=== PATIENT | male | born 1940 | race Caucasian/White ===

== ENCOUNTER → 2017-08-23 09:14 | Outpatient (CLI) | payer MEDICARE, OTHER, SELFPAY ==
[2017-08-23 13:12] LABS: Absolute Lymphocyte Count 1.52 X10^3/ul (0.83-4.51); Absolute Neutrophil Count 4.6 X10^3/uL (2.0-7.7); Basophil# 0.03 X10^3/uL; Basophil% 0.4 % (0-1); Eosinophil# 0.16 X10^3/uL; Eosinophils% 2.3 % (0-5); Hematocrit 38.9 % (40-54); Lymphocyte # 1.52 X10^3/ul (4.0); Lymphocyte % 21.8 % (19-41); Mean Corp Hgb Conc 33.4 g/gl (32-36); Mean Corpuscular Hgb 30.4 pg (27.0-32.0); Mean Corpuscular Volume 91.1 fL (80-94); Mean Platelet Vol. 9.5 fl (6.2-12.0); Monocyte# 0.67 X10^3/uL; Monocyte% 9.6 % (0-10); Neutrophil # 4.56 X10^3/uL (2.7-7.7); Neutrophil % 65.6 % (47-70); Platelet Count 215 K/mm3 (150-450); RBC Distribution Width CV 13.6 % (11.6-14.6); RBC Distribution Width SD 44.7 fl (35.1-43.9); Red Blood Count 4.27 M/mm3 (4.6-6.2)
[2017-08-23 13:29] LABS: Albumin, Serum 3.6 g/dL (3.2-5.0); BUN 18 mg/dL (7-18); BUN/Creat Ratio 15.7 RATIO (10-20); Creatinine, Serum 1.15 mg/dL (0.70-1.30); EST Glomerular Filtration Rate 66 mL/min (>60); Est Glom Filt Rate - Afr Amer 79 mL/min (>60); Glucose 201 mg/dL (74-106); Protein, Total 6.6 g/dL (6.4-8.2)
[2017-08-23 13:30] LABS: ALB/GLOB Ratio 1.2 RATIO (0.9-2.4); AST(SGOT) 20 U/L (15-37); Alanine Aminotransfer ALT/SGPT 28 U/L (16-61); Alkaline Phosphatase 123 U/L (45-117); Anion Gap 7 (5-15); Calcium,Total 8.6 mg/dL (8.5-10.1); Chloride 109 mmol/L (98-107); Potassium 4.1 mmol/L (3.5-5.1); Sodium Level 144 mmol/L (136-145); Thyroid Stim Hormone (TSH) 2.89 uIU/mL (0.358-3.74)
== END ==
PROVIDERS: Family Provider Family Medicine Geriatric Medicine; PCP Family Medicine Geriatric Medicine; Visit Provider Family Medicine Geriatric Medicine
DX: E11.9 Type 2 diabetes mellitus without complications (principal); E55.9 Vitamin D deficiency, unspecified; F52.8 Other sexual dysfunction not due to a substance or known physiological condition; I10 Essential (primary) hypertension
CPT/HCPCS: 36415; 80053; 82306; 84403; 84443; 85025

== ENCOUNTER → 2017-11-14 10:21 | Outpatient (CLI) | payer MEDICARE, OTHER, SELFPAY ==
[2017-11-14 13:18] LABS: Absolute Lymphocyte Count 1.01 X10^3/ul (0.83-4.51); Absolute Neutrophil Count 4.4 X10^3/uL (2.0-7.7); Basophil# 0.03 X10^3/uL; Basophil% 0.5 % (0-1); Eosinophil# 0.13 X10^3/uL; Eosinophils% 2.1 % (0-5); Hematocrit 38.2 % (40-54); Hemoglobin 12.3 g/dl (13.0-16.5); Lymphocyte # 1.01 X10^3/ul (4.0); Lymphocyte % 16.5 % (19-41); Mean Corp Hgb Conc 32.2 g/gl (32-36); Mean Corpuscular Hgb 29.4 pg (27.0-32.0); Mean Corpuscular Volume 91.4 fL (80-94); Mean Platelet Vol. 9.7 fl (6.2-12.0); Monocyte# 0.54 X10^3/uL; Monocyte% 8.8 % (0-10); Neutrophil % 72.1 % (47-70); Platelet Count 178 K/mm3 (150-450); RBC Distribution Width CV 13.9 % (11.6-14.6); RBC Distribution Width SD 45.9 fl (35.1-43.9); Red Blood Count 4.18 M/mm3 (4.6-6.2); White Blood Count 6.1 K/mm3 (4.4-11.0)
[2017-11-14 13:30] LABS: POSITIVE COUNT NO; POSITIVE DIFFERENTIAL NO; POSITIVE MORPHOLOGY NO
[2017-11-14 13:36] LABS: ALB/GLOB Ratio 1.2 RATIO (0.9-2.4); AST(SGOT) 27 U/L (15-37); Alanine Aminotransfer ALT/SGPT 44 U/L (16-61); Albumin, Serum 3.6 g/dL (3.2-5.0); Alkaline Phosphatase 118 U/L (45-117); Anion Gap 9 (5-15); BUN 20 mg/dL (7-18); BUN/Creat Ratio 16.4 RATIO (10-20); Calcium,Total 8.7 mg/dL (8.5-10.1); Chloride 109 mmol/L (98-107); Creatinine, Serum 1.22 mg/dL (0.70-1.30); EST Glomerular Filtration Rate 61 mL/min (>60); Est Glom Filt Rate - Afr Amer 74 mL/min (>60); Glucose 241 mg/dL (74-106); Potassium 4.1 mmol/L (3.5-5.1); Protein, Total 6.6 g/dL (6.4-8.2); Sodium Level 143 mmol/L (136-145); Thyroid Stim Hormone (TSH) 2.09 uIU/mL (0.358-3.74)
== END ==
PROVIDERS: Family Provider Family Medicine Geriatric Medicine; PCP Family Medicine Geriatric Medicine; Visit Provider Family Medicine Geriatric Medicine
DX: E11.9 Type 2 diabetes mellitus without complications (principal); E55.9 Vitamin D deficiency, unspecified; F52.8 Other sexual dysfunction not due to a substance or known physiological condition; I10 Essential (primary) hypertension
CPT/HCPCS: 36415; 80053; 82306; 84403; 84443; 85025

== ENCOUNTER → 2017-11-19 08:51 | Outpatient (CLI) | payer MEDICARE, OTHER, SELFPAY ==
--- NOTE | 2017-11-19 08:54 | ECHOCS_ITS ---
Reason For Study: SOB Procedure This was a 2D Doppler, Color Flow transthoracic echocardiogram. Contrast injection was performed. The study was technically difficult. Exam performed in department. Left Ventricle Normal LV size. Left ventricular systolic function is normal. The estimated ejection fraction is 60 %. No regional wall motion abnormalities noted. Right Ventricle Normal RV size. Normal systolic function. Atria The left atrium is mildly enlarged. Normal right atrium. No doppler evidence for ASD. Mitral Valve There is no mitral annular calcification. Normal mitral valve. Trivial mitral valve insufficiency. Tricuspid Valve Normal tricuspid valve. Mild tricuspid valve insufficiency. Right ventricular systolic pressure estimated to be 36 mmHg. Aortic Valve Trisinus/trileaflet aortic valve. Mild focal aortic valve thickening. Pulmonic Valve The pulmonic valve is not well visualized. Great Vessels Normal sized aortic root. Pericardium/Pleural No pericardial effusion. Medication Diluted definity 5ml given slow IV push to enhance endocardial definition. MMode/2D Measurements & Calculations LVIDd: 4.8 cm IVSd: 1.0 cm Ao root diam: 3.8 cm LVIDs: 3.1 cm LVPWd: 1.2 cm LA dimension: 4.7 cm FS: 34.3 % LAV(MOD-bp): 80.5 ml LA A4 area: 24.4 cm2 RA A4 area: 19.7 cm2 LAV(MOD-bp) Indexed: 33.4 ml/m2 LAV(MOD-sp2): 82.9 ml LAV(MOD-sp4): 79.4 ml Time Measurements MV dec time: 0.27 sec Doppler Measurements & Calculations MV E max mitchell: 98.9 cm/sec MV V2 max: 104.0 cm/sec MV P1/2t max mitchell: 103.0 cm/sec MV A max mitchell: 80.5 cm/sec MV max P.3 mmHg MV P1/2t: 113.9 msec MV E/A: 1.2 MV V2 mean: 53.4 cm/sec MV dec slope: 265.0 cm/sec2 MV mean P.4 mmHg MVA(P1/2t): 1.9 cm2 MV V2 VTI: 37.2 cm Ao V2 max: 144.9 cm/sec LV V1 max: 130.4 cm/sec PA V2 max: 90.5 cm/sec Ao max P.4 mmHg LV V1 max P.8 mmHg Ao V2 mean: 84.4 cm/sec LV V1 mean P.8 mmHg Ao mean P.4 mmHg LV V1 mean: 75.5 cm/sec Ao V2 VTI: 32.5 cm LV V1 VTI: 31.2 cm TR max mitchell: 287.3 cm/sec TR max P.0 mmHg Interpretation Summary The study was technically difficult. Contrast injection was performed. Left ventricular systolic function is normal. The estimated ejection fraction is 60 %. The left atrium is mildly enlarged. Trivial mitral valve insufficiency. Mild tricuspid valve insufficiency. Mild focal aortic valve thickening. Right ventricular systolic pressure estimated to be 36 mmHg. Transmitral diastolic flow velocities suggest diastolic dysfunction (pseudonormal pattern). Ordering Physician: Duarte Sanchez Referring Physician: Daniel, Duarte Chi Performed By: Derick Perdue RCS
== END ==
PROVIDERS: Family Provider Family Medicine Geriatric Medicine; PCP Family Medicine Geriatric Medicine; Visit Provider Family Medicine Geriatric Medicine
DX: R06.02 Shortness of breath (principal)
CPT/HCPCS: 93306; Q9957; A4216; C8929

== ENCOUNTER → 2018-02-18 08:51 | Outpatient (CLI) | payer MEDICARE, OTHER, SELFPAY ==
[2018-02-18 12:25] LABS: Absolute Lymphocyte Count 1.38 X10^3/ul (0.83-4.51); Absolute Neutrophil Count 5.2 X10^3/uL (2.0-7.7); Basophil# 0.02 X10^3/uL; Basophil% 0.3 % (0-1); Eosinophil# 0.19 X10^3/uL; Eosinophils% 2.5 % (0-5); Hematocrit 39.5 % (40-54); Hemoglobin 13.3 g/dl (13.0-16.5); Lymphocyte # 1.38 X10^3/ul (4.0); Lymphocyte % 18.4 % (19-41); Mean Corp Hgb Conc 33.7 g/gl (32-36); Mean Corpuscular Hgb 30.2 pg (27.0-32.0); Mean Corpuscular Volume 89.8 fL (80-94); Mean Platelet Vol. 9.9 fl (6.2-12.0); Monocyte# 0.75 X10^3/uL; Neutrophil # 5.17 X10^3/uL (2.7-7.7); Neutrophil % 68.7 % (47-70); Platelet Count 190 K/mm3 (150-450); RBC Distribution Width CV 13.4 % (11.6-14.6); RBC Distribution Width SD 43.3 fl (35.1-43.9); White Blood Count 7.5 K/mm3 (4.4-11.0)
[2018-02-18 12:28] LABS: POSITIVE COUNT NO; POSITIVE DIFFERENTIAL NO; POSITIVE MORPHOLOGY NO
[2018-02-18 12:45] LABS: ALB/GLOB Ratio 1.2 RATIO (0.9-2.4); AST(SGOT) 18 U/L (15-37); Alanine Aminotransfer ALT/SGPT 32 U/L (16-61); Albumin, Serum 3.7 g/dL (3.2-5.0); Alkaline Phosphatase 146 U/L (45-117); Anion Gap 7 (5-15); BUN 21 mg/dL (7-18); BUN/Creat Ratio 16.9 RATIO (10-20); Calcium,Total 8.7 mg/dL (8.5-10.1); Chloride 105 mmol/L (98-107); Creatinine, Serum 1.24 mg/dL (0.70-1.30); EST Glomerular Filtration Rate 60 mL/min (>60); Est Glom Filt Rate - Afr Amer 73 mL/min (>60); Glucose 278 mg/dL (74-106); Protein, Total 6.7 g/dL (6.4-8.2); Sodium Level 143 mmol/L (136-145)
[2018-02-18 12:46] LABS: Vitamin D,25 Hydroxy 31.2 ng/mL (29.95-100.01)
== END ==
PROVIDERS: Family Provider Family Medicine Geriatric Medicine; PCP Family Medicine Geriatric Medicine; Visit Provider Family Medicine Geriatric Medicine
DX: E11.9 Type 2 diabetes mellitus without complications (principal); E55.9 Vitamin D deficiency, unspecified; F52.8 Other sexual dysfunction not due to a substance or known physiological condition; I10 Essential (primary) hypertension
CPT/HCPCS: 36415; 80053; 82306; 84403; 84443; 85025

== ENCOUNTER → 2018-04-18 14:26 | Outpatient (CLI) | payer MEDICARE, OTHER, SELFPAY ==
--- NOTE | 2018-04-18 14:29 | RAD_ITS ---
STUDY: X-RAY - LUMBAR SPINE REASON FOR EXAM: Male, 78 years old. Low back pain radiating into the bilateral lower extremities TECHNIQUE: 3 view(s) of the lumbar spine were obtained. COMPARISON: 12/21/2016 FINDINGS: Normal lumbar lordosis. There is no substantial scoliosis. Stable mild anterolisthesis of L4 in relation to L5. Unilateral posterior fixation pedicle screws and hardware at L4-L5, similar since the prior study. There is multilevel endplate spondylosis of the lumbar vertebrae. Similar postoperative appearance of L4-L5 disc space. Mild compression deformity of T12 is stable. Facet arthropathy at multiple levels similar. Left hip replacement is noted. RAD/Lumbar Spine 2 or 3 Views IMPRESSION: Stable degenerative and postoperative changes, as above. Electronically Signed: Giovanni Baxter MD at 9:03 EST , Service support ,
== END ==
PROVIDERS: Family Provider Family Medicine Geriatric Medicine; PCP Family Medicine Geriatric Medicine; Referring Provider Family Medicine Geriatric Medicine; Visit Provider Family Medicine Geriatric Medicine
DX: M54.5 Low back pain (principal)
CPT/HCPCS: 72100

== ENCOUNTER → 2018-05-22 11:36 | Outpatient (CLI) | payer MEDICARE, OTHER, SELFPAY ==
[2018-05-22 12:51] LABS: Absolute Neutrophil Count 8.2 X10^3/uL (2.0-7.7); Basophil# 0.02 X10^3/uL; Basophil% 0.2 % (0-1); Eosinophil# 0.07 X10^3/uL; Eosinophils% 0.7 % (0-5); Hematocrit 40.8 % (40-54); Hemoglobin 13.4 g/dl (13.0-16.5); Lymphocyte % 13.4 % (19-41); Mean Corp Hgb Conc 32.8 g/gl (32-36); Mean Corpuscular Hgb 29.8 pg (27.0-32.0); Mean Corpuscular Volume 90.9 fL (80-94); Monocyte# 0.78 X10^3/uL; Monocyte% 7.5 % (0-10); Neutrophil # 8.15 X10^3/uL (2.7-7.7); Platelet Count 193 K/mm3 (150-450); RBC Distribution Width CV 13.2 % (11.6-14.6); RBC Distribution Width SD 43.2 fl (35.1-43.9); Red Blood Count 4.49 M/mm3 (4.6-6.2); White Blood Count 10.4 K/mm3 (4.4-11.0)
[2018-05-22 12:58] LABS: POSITIVE COUNT NO; POSITIVE DIFFERENTIAL NO; POSITIVE MORPHOLOGY NO
[2018-05-22 13:02] LABS: ALB/GLOB Ratio 1.3 RATIO (0.9-2.4); AST(SGOT) 19 U/L (15-37); Alanine Aminotransfer ALT/SGPT 35 U/L (16-61); Albumin, Serum 3.7 g/dL (3.2-5.0); Alkaline Phosphatase 136 U/L (45-117); Anion Gap 7 (5-15); BUN 29 mg/dL (7-18); BUN/Creat Ratio 21.8 RATIO (10-20); Calcium,Total 8.6 mg/dL (8.5-10.1); Chloride 107 mmol/L (98-107); Creatinine, Serum 1.33 mg/dL (0.70-1.30); EST Glomerular Filtration Rate 55 mL/min (>60); Est Glom Filt Rate - Afr Amer 67 mL/min (>60); Globulin 2.8 g/dL (2.2-4.2); Glucose 397 mg/dL (74-106); Potassium 4.4 mmol/L (3.5-5.1); Protein, Total 6.5 g/dL (6.4-8.2); Sodium Level 141 mmol/L (136-145); Thyroid Stim Hormone (TSH) 2.32 uIU/mL (0.358-3.74)
--- OUTSIDE RECORDS SUMMARY | 2018-07-24 09:12 | XMS RPT_ITS ---
:1940 Author Organization [place] Support Name Relationship Address Phone CHIKA OVIEDO Unavailable [address] + [place] [address] WILLOW TRINH Unavailable [address] +. [place] al RONAL FRIEND Unavailable Unavailable + [place] [address] CHIKA OVIEDO Unavailable [address] + [place] [address] WILLOW TRINH Unavailable [address] +. [place] al RONAL FRIEND Unavailable Unavailable + [place] [address] CHIKA OVIEDO Unavailable [address] + [place] [address] WILLOW TRINH Un[address] +. génesis NEAL MICHAEL Unavailable Unavailable + [place] [address] CHIKA OVIEDO Unavailable [address] + [place] [address] WILLOW TRINH Unavailable [address] +. génesis NEAL MICHAEL Unavailable Unavailable + [place] [address] PREETCHIKA ELAM Unavailable [address] + [place] [address] WILLOW TRINH Unavailable [address] +. génesis NEAL MICHAEL Unavailable Unavailable + [place] [address] CHIKA OVIEDO Unavailable [address] + [place] [address] WILLOW TRINH Unavailable [address] +. génesis NEAL MICHAEL Unavailable . + [place] [address] PREET, CHIKA Unavailable [address] + [place] [address] [address] [facility] [address] +. [place] [address] RONAL ISRAEL Unavailable . + [place] [address] CHIKA OVIEDO Unavailable [address] + [place] [address] [address] [facility] [address] +. [place] [address] RONAL ISRAEL Unavailable . + [place] [address] CHIKA OVIEDO Unavailable [address] + [place] [address] [address] [facility] [address] +. [place] [address] RONAL ISRAEL Unavailable . + [place] [address] Care Team Providers Name Role Phone BANDAR, ASHISH CHI Referring Unavailable Bandar, Ashish Chi Attending Unavailable Bandar, Ashish Chi Primary Care Unavailable Bandar, Ashish Chi Attending Unavailable Bandar, Ashish Chi Referring Unavailable Bandar, Ashish Chi Primary Care Unavailable Bandar, Ashish Chi Attending Unavailable Bandar, Ashish Chi Primary Care Unavailable Jose Miller Attending Unavailable Bandar, Ashish Chi Referring Unavailable Kristi Christianson Attending Unavailable Bandar, Ashish Chi Referring Unavailable Bandar, Ashish Chi Primary Care Unavailable Bandar, Ashish Chi Attending Unavailable Bandar, Ashish Chi Primary Care Unavailable Bandar, Ashish Chi Attending Unavailable Bandar, Ashish Chi Primary Care Unavailable Bandar, Ashish Chi Attending Unavailable Bandar, Ashish Chi Referring Unavailable Bandar, Ashish Chi Primary Care Unavailable Jalen Perez Attending Unavailable PROBLEMS PROBLEMS DATE TYPE CONDITION / CODE ATTENDING STATUS SOURCE 05/24/2018 Active Unknown / NA Active [facility] UNK(Unknown) Other [place] Repository 04/18/2018 Unknown M54.5 - Low back Bandar, Ashish Chi Active [facility] M54.5(ICD-10) Hospital Repository 12/17/2017 Unknown R06.02 - Shortness Jalen Perez Active [facility] R06.02(ICD-10) Hospital Repository 09/25/2017 Unknown I10 - Essential Martha Christianson (primary) [facility] I10(ICD-10) Repository PROCEDURES PROCEDURES No Procedure Records FoundRESULTS RESULTS PROGRESS Observed: 05/25/2018 Status: COMPLETED Source: [place] 4:39 PM [facility] REPOSITORY HNO ID: [id number] Author: Tory (Pt) JOCELYN Singh Service: (none) Author Type: Physical Therapist Type: Progress Notes Filed: 05/25/2018 4:50 PM Note Text: Episode Visit Count: 1 Therapist That Will Oversee The Plan Of Care: Moshe Singh Start of Care Date: 05/24/18 Plan of Care Certification Date: 05/24/18 Patient Identified by Name and Date of : Yes REHABILITATION AND SPORTS THERAPY PHYSICAL THERAPY EVALUATION PLAN OF CARE: Assessment: Eva Israel presents with the diagnosis of low back pain referred by PCP to PT AND pain management, which he has done both of in the past. Pt had previous PT here after back surgery in 2012 then had issues with L hip pain after which time he underwent L ANTOINETTE in 2013 followed by R TKA in 2017. Pt reports good recovery from surgeries but has been experiencing low back pain as well as LE pain AND weakness over the past 3-4 months of unknown etiology, he also reports impaired mobility, gait AND a few recent falls . He presents with impairments of pain, weakness, impaired gait, balance, overall mobility AND reduced activity tolerance. He may benefit from skilled therapy services to improve strength, balance AND gait for improved mobility, ADLs AND quality of life. Prognosis: Fair;Good Good due to: positive past response to therapy;good support system/ coping skills;good overall health status (good motivation) Fair due to: clinical presentation;multiple co- morbidities;chronic nature of impairments Goals for Episode of Care: created on 05/24/18 through 08/22/18 Independent in home exercises. Patient will decrease pain rating by 2 points to meet minimal clinical important difference for numeric pain rating scale. Restore pain-free lumbar ROM to wnl to allow for improved mobility AND ADLs. Patient will be able to correct postural deviations in order to improve postural alignment of trunk during ambulation, standing and functional activities, allow for normal mechanics, to decrease current pain and prevent future recurrence. Knowledgeable regarding prophylaxis. Patient will increase strength of B LEs to 4+/5 to allow for return to prior functional status, normalized gait mechanics and perform ADLs. Improve Modified Oswestry Pain Questionnaire (LBP) by 6 points (12%) to indicate a Minimal Clinical Important Difference. Planned Interventions, Frequency, and Duration: Current Frequency: 2x/week Duration: 12 weeks Total Number of Visits Planned: 20 Planned Treatment Interventions: Therapeutic exercise;Neuromuscular re-education;Therapeutic activities;Gait Training;Patient/Family/Caregiver Education;Body Mechanics Training PLAN FOR NEXT VISIT: address LBP/LE pain, progress LE strength AND gait stability Patient demonstrates good understanding of plan of care and treatment. The above goals and plan of care were discussed and agreed upon by patient/family. SUBJECTIVE: Eva Israel is a 78 year old male seen today for progressive LBP of unknown etiology over the past 3-4 months. pt saw PCP (had cortisone/pain injection with minimal to no relief) - had negative Xray, scheduled for MRI next Sunday, was referred back to pain management (Dr Guevara) AND PT. pt currently talking tramadol AND tylenol for pain Patient Goals: pain relief, better mobility Functional Limitations: standing;walking;rising from a chair;working;physical activities;recreational activities Prior Level of Function: Independent without limitations Relevant History Medical Conditions: Arthritis;Diabetes;Kidney Problems;Hypertension Surgical Conditions: Total Hip Replacement;Total Knee Replacement (PLDF L3-5 '13, L ANTOINETTE '14, R TKA '17) Intake Information: Prescription present Previous Treatment: Physical Therapy?;Pain Management?;Pain meds?;Injections?;Surgery? Pain Score: 5/10 (9 to 10/10 at worst) Pain Location: Low Back/Lumbar Spine - Left;Low Back/Lumbar Spine - Right;Leg - Left;Leg - Right Spine History Symptoms Location at Onset: Back Symptoms Since Onset: Worsening Pain is Worse Always: Walking;As the day progresses Pain is Better Sometimes: Sitting Previous Episodes: Yes Sleep Affected by Pain: Pain awakens OBJECTIVE MEASURES WITH LEVEL OF FUNCTION: Posture / Alignment Lumbo - Pelvic Alignment: L IC elevated Leg Length Discrepency: Hx of LLD - pt wore previous lifts/buildup R shoe Lumbar Spine AROM Lumbar Flexion: Minimal limitation;Increased pain;End range pain;Pain during movement;Peripheralizing;Produces Lumbar Extension: Minimal limitation Repeated Test Movements - Lumbar Directional preference: Yes Directional Preference Direction: Flexion REIL - Symptoms After: better;centralized (improved DF/EHL strength) LE Strength R Hip Extension: 3/5 R Hip Flexion (L2): 4+/5 R Hip ABduction: 3-/5 R Knee Extension (L3): 4+/5 R Knee Flexion: 5/5 R Ankle Dorsiflexion (L4): 3+/5 R Ankle Plantar Flexion: 3-/5 R Great Toes Extension (L5, S1): 3+/5 L Hip Extension: 3/5 L Hip Flexion (L2): 4+/5 L Hip ABduction: 2+/5 L Knee Extension (L3): 4+/5 L Knee Flexion: 5/5 L Ankle Dorsiflexion (L4): 3+/5 L Ankle Plantar Flexion: 3-/5 L Great Toes Extension (L5, S1): 3+/5 Special Tests - Hip and Spine Hip and Spine Special Tests: SLR Test SLR Test: Right Positive;Left Positive Gait Gait: Independent Gait Device: None (no AD currently, sometimes uses cane on R) Gait Deviations: Right Lower Extremity;Left Lower Extremity;General Deviations Gait Deviations Right Lower Extremity: Trendelenburg;Lateral hip stability at mid-stance decreased;Push-off during terminal stance decreased;Heel strike during initial stance decreased Gait Deviations Left Lower Extremity: Heel strike during initial stance decreased;Trendelenburg;Lateral hip stability at mid-stance decreased General Gait Deviations: Antalgic gait pattern;Arm swing decreased;Lateral sway increased;Wide base of support;Non-functional gait speed Gait Observation: waddling gait pattern Education: Education Learning/educational needs: Safety;Home exercise program;Plan of Care;Posture;Gait Training;Body Mechanics Education Provided: Yes, see treatment interventions for education provided Education Provided To: Patient Education Mode/Type: Demonstration;Explanation/Discussion;Performance Response to Education/Teach Back: States/Identifies;Return Demonstration;Requires Review/Additional Education TREATMENT: Evaluation Therapeutic Exercise: 1: *PPU 10x, CEASAR Skilled Intervention: Patient was educated in proper exercise technique and purpose for exercises. Reviewed and educated patient on additions/changes for home exercise program as above (*) Provided written instruction for home exercise program to facilitate proper performance and compliance. Educated patient on rationale for performing exercises in regards to ROM and function Patient education as noted. Discussed need for hip strengthening to improve gait AND stability. Billing: [place]: Evaluation - Moderate Complexity (02861) Therapeutic Exercise (25213): 1:1 time: 10 minutes (1 unit: 8-22 mins) Total time: 50 minutes Tory Singh PT CNTHERAPY Observed: 05/24/2018 Status: COMPLETED Source: [place] 7:45 AM [facility] REPOSITORY OT/PT/Speech Visit (LDPT) EVA ISRAEL ([id number]) 1940 M Date Time Provider Department 05/24/18 7:45 AM TORY SINGH (PT) LDPT Date Time Provider Department Center 05/24/2018 7:45 AM [id number], CARLA (P*LDPT [facility] [address] Reason for Visit: PT Eval [747] Primary Visit Diagnosis:Chronic bilateral low back pain with bilateral sciatica [M54.42, M54.41, G89.29] Other Visit Diagnoses:Bilateral leg weakness [R29.898] Impaired mobility [Z74.09] Abnormality of gait [R26.9] Allergies As of Date: 05/24/2018 Noted Allergy Reaction VYTORIN 10-10 (EZETIMIBE-SIMVASTA*05/08/2010 14 - Other: See Comments Comments: Muscle aches. Date Reviewed: 05/03/2011 Reviewed by: Cassie Zaman Rn - Fully Assessed Prescriptions as of 05/24/2018 Sig: GLIMEPIRIDE 2 MG TABLET Take 1 tablet by mouth daily * BLOOD SUGAR DIAGNOSTIC STRIPS CHECK BLOOD SUGARS 1 TIME SENAIT* HYDROCODONE 5 MG-ACETAMINOPHE* Take 1 tablet by mouth every * COMPOUNDED PRESCRIPTION Fish oil 1000mg bid. ROSUVASTATIN 10 MG TABLET Take 1 tablet by mouth daily * EZETIMIBE 10 MG TABLET Take 1 tablet by mouth once d* SITAGLIPTIN 100 MG TABLET Take 1 tablet by mouth once d* PIOGLITAZONE 45 MG TABLET Take 1 tablet by mouth once d* LISINOPRIL 20 MG-HYDROCHLOROT* Take 1 tablet by mouth once d* ASPIRIN 81 MG TABLET,DELAYED * Take one(1) tablet daily. COMPOUNDED PRESCRIPTION alpha-lipoic acide 200 mg bid Progress Notes: Tory Singh PT, PT 05/25/2018 4:50 PM Signed Episode Visit Count: 1 Therapist That Will Oversee The Plan Of Care: Moshe Singh Start of Care Date: 05/24/18 Plan of Care Certification Date: 05/24/18 Patient Identified by Name and Date of : Yes REHABILITATION AND SPORTS THERAPY PHYSICAL THERAPY EVALUATION PLAN OF CARE: Assessment: Eva Israel presents with the diagnosis of low back pain referred by PCP to PT AND pain management, which he has done both of in the past. Pt had previous PT here after back surgery in 2012 then had issues with L hip pain after which time he underwent L ANTOINETTE in 2013 followed by R TKA in 2017. Pt reports good recovery from surgeries but has been experiencing low back pain as well as LE pain AND weakness over the past 3-4 months of unknown etiology, he also reports impaired mobility, gait AND a few recent falls . He presents with impairments of pain, weakness, impaired gait, balance, overall mobility AND reduced activity tolerance. He may benefit from skilled therapy services to improve strength, balance AND gait for improved mobility, ADLs AND quality of life. Prognosis: Fair;Good Good due to: positive past response to therapy;good support system/ coping skills;good overall health status (good motivation) Fair due to: clinical presentation;multiple co- morbidities;chronic nature of impairments Goals for Episode of Care: created on 05/24/18 through 08/22/18 Independent in home exercises. Patient will decrease pain rating by 2 points to meet minimal clinical important difference for numeric pain rating scale. Restore pain-free lumbar ROM to wnl to allow for improved mobility AND ADLs. Patient will be able to correct postural deviations in order to improve postural alignment of trunk during ambulation, standing and functional activities, allow for normal mechanics, to decrease current pain and prevent future recurrence. Knowledgeable regarding prophylaxis. Patient will increase strength of B LEs to 4+/5 to allow for return to prior functional status, normalized gait mechanics and perform ADLs. Improve Modified Oswestry Pain Questionnaire (LBP) by 6 points (12%) to indicate a Minimal Clinical Important Difference. Planned Interventions, Frequency, and Duration: Current Frequency: 2x/week Duration: 12 weeks Total Number of Visits Planned: 20 Planned Treatment Interventions: Therapeutic exercise;Neuromuscular re-education;Therapeutic activities;Gait Training;Patient/Family/Caregiver Education;Body Mechanics Training PLAN FOR NEXT VISIT: address LBP/LE pain, progress LE strength AND gait stability Patient demonstrates good understanding of plan of care and treatment. The above goals and plan of care were discussed and agreed upon by patient/family. SUBJECTIVE: Eva Israel is a 78 year old male seen today for progressive LBP of unknown etiology over the past 3-4 months. pt saw PCP (had cortisone/pain injection with minimal to no relief) - had negative Xray, scheduled for MRI next Sunday, was referred back to pain management (Dr Guevara) AND PT. pt currently talking tramadol AND tylenol for pain Patient Goals: pain relief, better mobility Functional Limitations: standing;walking;rising from a chair;working;physical activities;recreational activities Prior Level of Function: Independent without limitations Relevant History Medical Conditions: Arthritis;Diabetes;Kidney Problems;Hypertension Surgical Conditions: Total Hip Replacement;Total Knee Replacement (PLDF L3-5 , L ANTOINETTE 14, R TKA ) Intake Information: Prescription present Previous Treatment: Physical Therapy?;Pain Management?;Pain meds?;Injections?;Surgery? Pain Score: 5/10 (9 to 10/10 at worst) Pain Location: Low Back/Lumbar Spine - Left;Low Back/Lumbar Spine - Right;Leg - Left;Leg - Right Spine History Symptoms Location at Onset: Back Symptoms Since Onset: Worsening Pain is Worse Always: Walking;As the day progresses Pain is Better Sometimes: Sitting Previous Episodes: Yes Sleep Affected by Pain: Pain awakens OBJECTIVE MEASURES WITH LEVEL OF FUNCTION: Posture / Alignment Lumbo - Pelvic Alignment: L IC elevated Leg Length Discrepency: Hx of LLD - pt wore previous lifts/buildup R shoe Lumbar Spine AROM Lumbar Flexion: Minimal limitation;Increased pain;End range pain;Pain during movement;Peripheralizing;Produces Lumbar Extension: Minimal limitation Repeated Test Movements - Lumbar Directional preference: Yes Directional Preference Direction: Flexion REIL - Symptoms After: better;centralized (improved DF/EHL strength) LE Strength R Hip Extension: 3/5 R Hip Flexion (L2): 4+/5 R Hip ABduction: 3-/5 R Knee Extension (L3): 4+/5 R Knee Flexion: 5/5 R Ankle Dorsiflexion (L4): 3+/5 R Ankle Plantar Flexion: 3-/5 R Great Toes Extension (L5, S1): 3+/5 L Hip Extension: 3/5 L Hip Flexion (L2): 4+/5 L Hip ABduction: 2+/5 L Knee Extension (L3): 4+/5 L Knee Flexion: 5/5 L Ankle Dorsiflexion (L4): 3+/5 L Ankle Plantar Flexion: 3-/5 L Great Toes Extension (L5, S1): 3+/5 Special Tests - Hip and Spine Hip and Spine Special Tests: SLR Test SLR Test: Right Positive;Left Positive Gait Gait: Independent Gait Device: None (no AD currently, sometimes uses cane on R) Gait Deviations: Right Lower Extremity;Left Lower Extremity;General Deviations Gait Deviations Right Lower Extremity: Trendelenburg;Lateral hip stability at mid-stance decreased;Push-off during terminal stance decreased;Heel strike during initial stance decreased Gait Deviations Left Lower Extremity: Heel strike during initial stance decreased;Trendelenburg;Lateral hip stability at mid-stance decreased General Gait Deviations: Antalgic gait pattern;Arm swing decreased;Lateral sway increased;Wide base of support;Non-functional gait speed Gait Observation: waddling gait pattern Education: Education Learning/educational needs: Safety;Home exercise program;Plan of Care;Posture;Gait Training;Body Mechanics Education Provided: Yes, see treatment interventions for education provided Education Provided To: Patient Education Mode/Type: Demonstration;Explanation/Discussion;Performance Response to Education/Teach Back: States/Identifies;Return Demonstration;Requires Review/Additional Education TREATMENT: Evaluation Therapeutic Exercise: 1: *PPU chris, CEASAR Skilled Intervention: Patient was educated in proper exercise technique and purpose for exercises. Reviewed and educated patient on additions/changes for home exercise program as above (*) Provided written instruction for home exercise program to facilitate proper performance and compliance. Educated patient on rationale for performing exercises in regards to ROM and function Patient education as noted. Discussed need for hip strengthening to improve gait AND stability. Billing: [place]: Evaluation - Moderate Complexity (51366) Therapeutic Exercise (15998): 1:1 time: 10 minutes (1 unit: 8-22 mins) Total time: 50 minutes Tory Singh PT Letter Text CBC W/DIFF, AUTOMATED Collected: 05/22/2018 Status: F Source: [place] 11:39 AM [facility] REPOSITORY TYPE CODE TESTS RESULT OUT OF RANGE REFERENCE UNITS LAB L100.1000 4.4-11.0 K/mm3 Normal WBC 10.4 LAB L100.1200 4.6-6.2 M/mm3 Low RBC 4.49 LAB L100.1300 13.0-16.5 g/dl Normal HGB 13.4 LAB L100.1400 40-54 % Normal HCT 40.8 LAB L100.1500 80-94 fL Normal MCV 90.9 LAB L100.1600 27.0-32.0 pg Normal MCH 29.8 LAB L100.1700 32-36 g/gl Normal MCHC 32.8 LAB L100.1810 11.6-14.6 % Normal RDW CV 13.2 LAB L100.1820 35.1-43.9 fl Normal RDW SD 43.2 LAB L100.1900 150-450 K/mm3 Normal PLT 193 LAB L100.2000 6.2-12.0 fl Normal MPV 10.0 LAB L100.2100 47-70 % High NEUT% 78.0 LAB L100.2200 19-41 % Low LY% 13.4 LAB L100.2300 0-10 % Normal MONO% 7.5 LAB L100.2400 0-5 % Normal EO% 0.7 LAB L100.2500 0-1 % Normal BASO% 0.2 LAB L100.2550 0.0-0.9 % Normal IM GRAN % 0.200 Result Comment: IG% - Immature Granulocytes (promyelocytes, myelocytes and metamyelocytes) > 1% indicates that a LEFT SHIFT is Present. LAB L100.2620 2.0-7.7 X10 3/uL High Absolute Neut 8.2 LAB L100.2720 0.83-4.51 X10 3/ul Normal Absolute Lymph 1.40 Performed By: #### L100.0100 #### [facility] Ivone Gonsalves Katelynn. [place], [place], [address] VITAMIN D,25 HYDROXY Collected: 05/22/2018 Status: F Source: [place] 11:39 AM [facility] REPOSITORY TYPE CODE TESTS RESULT OUT OF REFERENCE UNITS RANGE LAB L506.1000 29.95-100.01 ng/mL Low Vitamin D 24.0 25-OH Result Comment: Vitamin D 25(OH) Status Range Deficiency <20 ng/mL (50nmol/L) Insuffciency 20 - 30 ng/mL (50 - 75 nmol/L) Sufficiency 30 - 100 ng/mL (75 - 250 nmol/L) Toxicity >100 ng/mL (>250 nmol/L) Performed By: #### L506.1000, L509.3000 #### [facility] [address] [place], [address] TESTOSTERONE, SERUM TOTAL Collected: 05/22/2018 Status: F Source: [place] 11:39 AM [facility] REPOSITORY TYPE CODE TESTS RESULT OUT OF REFERENCE UNITS RANGE LAB L509.3000 ng/dL Testosterone Normal 249.91 Result Comment: NORMAL REFERENCE RANGES MALE AGE <50 123.06 - 813.86 ng/dL MALE AGE >50 89.98 - 780.10 ng/dL FEMALE PREMENOPAUSE AGE 21 - 60 9.01 - 47.94 ng/dL FEMALE POSTMENOPAUSE AGE 45 - 89 <7.00 - 45.62 ng/dL REFERENCE RANGE AND METHODOLOGY CHANGED 04/18/2017 Performed By: #### L506.1000, L509.3000 #### [facility] [address] [place], [place], [address] COMPREHENSIVE METABOLIC Collected: 05/22/2018 Status: F Source: [facility] 11:39 AM [facility] REPOSITORY TYPE CODE TESTS RESULT OUT OF RANGE REFERENCE UNITS LAB L501.0100 74-106 mg/dL High GLU 397 Result Comment: Glucose result greater than or equal to 200 mg/dL suggests DIABETES MELLITUS per A.D.A. criteria. Please note revised GLUCOSE reference range effective 2017. LAB L501.1000 7-18 mg/dL High BUN 29 LAB L501.1100 0.70-1.30 mg/dL High CREAT,SERUM 1.33 Result Comment: The validity of the calculated GFR AND GFRAA in patients over 70 years has not been determined. Clinical correlation is essential. LAB L501.1110 >60 mL/min Low EST GFR 55 Result Comment: Non- GFR Calc LAB L501.1115 >60 mL/min Normal EST GFR - AA 67 Result Comment: GFR Calc LAB L501.1300 10-20 RATIO High BUN/CRE 21.8 LAB L501.1500 6.4-8.2 g/dL T Normal PROT 6.5 LAB L501.1800 3.2-5.0 g/dL Normal ALB 3.7 LAB L501.1950 2.2-4.2 g/dL Normal GLOB 2.8 LAB L501.2000 0.9-2.4 RATIO Normal A/G 1.3 LAB L501.2200 8.5-10.1 mg/dL CA Normal 8.6 LAB L501.4100 15-37 U/L Normal AST 19 LAB L501.4305 45-117 U/L High ALK P 136 LAB L501.4405 16-61 U/L Normal ALT 35 LAB L501.4600 0.20-1.00 mg/dL T Normal BILI 0.70 LAB L501.5300 136-145 mmol/L NA Normal 141 LAB L501.5600 3.5-5.1 mmol/L K Normal 4.4 LAB L501.5900 98-107 mmol/L CL Normal 107 LAB L501.6100 21.0-32.0 mmol/L Normal CO2 27.0 LAB L501.6200 5-15 Normal GAP 7 Performed By: #### L500.4050, L501.9520 #### [facility] [address] [place], [place], [address] THYROID STIM HORMONE Collected: 05/22/2018 Status: F Source: [place] (TSH) 11:39 AM [facility] REPOSITORY TYPE CODE TESTS RESULT OUT OF RANGE REFERENCE UNITS LAB L501.9520 0.358-3.74 uIU/mL Normal TSH 2.32 Performed By: #### L500.4050, L501.9520 #### [facility] [address] [place], [address] LUMBAR SPINE 2 OR 3 Observed: 04/18/2018 Status: F Source: [place] VIEWS 2:29 PM [facility] REPOSITORY [facility] Imaging Services [address] [place] [address] Lumbar Spine 2 or 3 Views MR#: [id number] Acct: [id number] Name: EVA ISRAEL Rep #: [id number] : 1940 M 78 From: Giovanni Baxter MD PCP: Ashish Sanchez MD, Chi Status: REG CLI Study: Lumbar Spine 2 or 3 Views Date of Exam: 04/18/18 Exam# [id number] Ordering Dr: Ashish Sanchez MD STUDY: X-RAY - LUMBAR SPINE REASON FOR EXAM: Male, 78 years old. Low back pain radiating into the bilateral lower extremities TECHNIQUE: 3 view(s) of the lumbar spine were obtained. COMPARISON: 12/21/2016 FINDINGS: Normal lumbar lordosis. There is no substantial scoliosis. Stable mild anterolisthesis of L4 in relation to L5. Unilateral posterior fixation pedicle screws and hardware at L4-L5, similar since the prior study. There is multilevel endplate spondylosis of the lumbar vertebrae. Similar postoperative appearance of L4-L5 disc space. Mild compression deformity of T12 is stable. Facet arthropathy at multiple levels similar. Left hip replacement is noted. RAD/Lumbar Spine 2 or 3 Views IMPRESSION: Stable degenerative and postoperative changes, as above. Electronically Signed: Giovanni Baxter MD at 9:03 EST , Service support , CC: Ashish Sanchez MD Career Center Director: Signed CBC W/DIFF, AUTOMATED Collected: 02/18/2018 Status: F Source: [place] 8:53 AM [facility] REPOSITORY TYPE CODE TESTS RESULT OUT OF RANGE REFERENCE UNITS LAB L100.1000 4.4-11.0 K/mm3 Normal WBC 7.5 LAB L100.1200 4.6-6.2 M/mm3 Low RBC 4.40 LAB L100.1300 13.0-16.5 g/dl Normal HGB 13.3 LAB L100.1400 40-54 % Low HCT 39.5 LAB L100.1500 80-94 fL Normal MCV 89.8 LAB L100.1600 27.0-32.0 pg Normal MCH 30.2 LAB L100.1700 32-36 g/gl Normal MCHC 33.7 LAB L100.1810 11.6-14.6 % Normal RDW CV 13.4 LAB L100.1820 35.1-43.9 fl Normal RDW SD 43.3 LAB L100.1900 150-450 K/mm3 Normal PLT 190 LAB L100.2000 6.2-12.0 fl Normal MPV 9.9 LAB L100.2100 47-70 % Normal NEUT% 68.7 LAB L100.2200 19-41 % Low LY% 18.4 LAB L100.2300 0-10 % Normal MONO% 10.0 LAB L100.2400 0-5 % Normal EO% 2.5 LAB L100.2500 0-1 % Normal BASO% 0.3 LAB L100.2550 0.0-0.9 % Normal IM GRAN % 0.100 Result Comment: IG% - Immature Granulocytes (promyelocytes, myelocytes and metamyelocytes) > 1% indicates that a LEFT SHIFT is Present. LAB L100.2620 2.0-7.7 X10 3/uL Normal Absolute Neut 5.2 LAB L100.2720 0.83-4.51 X10 3/ul Normal Absolute Lymph 1.38 Performed By: #### L100.0100 #### [facility] [address] [place], [address] COMPREHENSIVE METABOLIC Collected: 02/18/2018 Status: F Source: [facility] 8:53 AM [facility] REPOSITORY TYPE CODE TESTS RESULT OUT OF RANGE REFERENCE UNITS LAB L501.0100 74-106 mg/dL High GLU 278 Result Comment: Glucose result greater than or equal to 200 mg/dL suggests DIABETES MELLITUS per A.D.A. criteria. Please note revised GLUCOSE reference range effective 2017. LAB L501.1000 7-18 mg/dL High BUN 21 LAB L501.1100 0.70-1.30 mg/dL Normal CREAT,SERUM 1.24 Result Comment: The validity of the calculated GFR AND GFRAA in patients over 70 years has not been determined. Clinical correlation is essential. LAB L501.1110 >60 mL/min Normal EST GFR 60 Result Comment: Non- GFR Calc LAB L501.1115 >60 mL/min Normal EST GFR - AA 73 Result Comment: GFR Calc LAB L501.1300 10-20 RATIO Normal BUN/CRE 16.9 LAB L501.1500 6.4-8.2 g/dL T Normal PROT 6.7 LAB L501.1800 3.2-5.0 g/dL Normal ALB 3.7 LAB L501.1950 2.2-4.2 g/dL Normal GLOB 3.0 LAB L501.2000 0.9-2.4 RATIO Normal A/G 1.2 LAB L501.2200 8.5-10.1 mg/dL CA Normal 8.7 LAB L501.4100 15-37 U/L Normal AST 18 LAB L501.4305 45-117 U/L High ALK P 146 LAB L501.4405 16-61 U/L Normal ALT 32 LAB L501.4600 0.20-1.00 mg/dL T Normal BILI 0.90 LAB L501.5300 136-145 mmol/L NA Normal 143 LAB L501.5600 3.5-5.1 mmol/L K Normal 4.0 LAB L501.5900 98-107 mmol/L CL Normal 105 LAB L501.6100 21.0-32.0 mmol/L Normal CO2 31.0 LAB L501.6200 5-15 Normal GAP 7 Performed By: #### L500.4050, L501.9520 #### [facility] [address] [place], [place], [id number] THYROID STIM HORMONE Collected: 02/18/2018 Status: F Source: [place] (TSH) 8:53 AM [facility] REPOSITORY TYPE CODE TESTS RESULT OUT OF RANGE REFERENCE UNITS LAB L501.9520 0.358-3.74 uIU/mL Normal TSH 3.50 Performed By: #### L500.4050, L501.9520 #### [facility] [address] [facility] [place], [place], [address] VITAMIN D,25 HYDROXY Collected: 02/18/2018 Status: F Source: [place] 8:53 AM [facility] REPOSITORY TYPE CODE TESTS RESULT OUT OF RANGE REFERENCE UNITS LAB L506.1000 29.95-100.01 ng/mL Normal Vitamin D 31.2 25-OH Result Comment: Vitamin D 25(OH) Status Range Deficiency <20 ng/mL (50nmol/L) Insuffciency 20 - 30 ng/mL (50 - 75 nmol/L) Sufficiency 30 - 100 ng/mL (75 - 250 nmol/L) Toxicity >100 ng/mL (>250 nmol/L) Performed By: #### L506.1000, L509.3000 #### [facility] [address] [place], [address] TESTOSTERONE, SERUM TOTAL Collected: 02/18/2018 Status: F Source: [place] 8:53 AM [facility] REPOSITORY TYPE CODE TESTS RESULT OUT OF REFERENCE UNITS RANGE LAB L509.3000 ng/dL Testosterone Normal 231.63 Result Comment: NORMAL REFERENCE RANGES MALE AGE <50 123.06 - 813.86 ng/dL MALE AGE >50 89.98 - 780.10 ng/dL FEMALE PREMENOPAUSE AGE 21 - 60 9.01 - 47.94 ng/dL FEMALE POSTMENOPAUSE AGE 45 - 89 <7.00 - 45.62 ng/dL REFERENCE RANGE AND METHODOLOGY CHANGED 04/18/2017 Performed By: #### L506.1000, L509.3000 #### [facility] [address] [place], [address] ECHO, COMPLETE W/ Observed: 11/19/2017 Status: F Source: [place] CONTRAST 6:59 PM [facility] REPOSITORY [facility] Cardiovascular Services [address] [place] [address] Echo Complete W/ Contrast 11/19/17 0856 MR#: [id number] Acct: [id number] Name: EVA ISRAEL Rep #: [id number] : 1940 77 From: Jalen Perez MD Attending Dr: Bandar PEREIRA,Ashish Ramsay Status: REG CLI Ordering Dr: Ahsish Sanchez MD Date: 11/19/17 Location: CVS Sex: M C Admitted: Reason For Study: SOB Procedure This was a 2D Doppler, Color Flow transthoracic echocardiogram. Contrast injection was performed. The study was technically difficult. Exam performed in department. Left Ventricle Normal LV size. Left ventricular systolic function is normal. The estimated ejection fraction is 60 %. No regional wall motion abnormalities noted. Right Ventricle Normal RV size. Normal systolic function. Atria The left atrium is mildly enlarged. Normal right atrium. No doppler evidence for ASD. Mitral Valve There is no mitral annular calcification. Normal mitral valve. Trivial mitral valve insufficiency. Tricuspid Valve Normal tricuspid valve. Mild tricuspid valve insufficiency. Right ventricular systolic pressure estimated to be 36 mmHg. Aortic Valve Trisinus/trileaflet aortic valve. Mild focal aortic valve thickening. Pulmonic Valve The pulmonic valve is not well visualized. Great Vessels Normal sized aortic root. Pericardium/Pleural No pericardial effusion. Medication Diluted definity 5ml given slow IV push to enhance endocardial definition. MMode/2D Measurements AND Calculations LVIDd: 4.8 cm IVSd: 1.0 cm Ao root diam: 3.8 cm LVIDs: 3.1 cm LVPWd: 1.2 cm LA dimension: 4.7 cm FS: 34.3 % LAV(MOD-bp): 80.5 ml LA A4 area: 24.4 cm2 RA A4 area: 19.7 cm2 LAV(MOD-bp) Indexed: 33.4 ml/m2 LAV(MOD-sp2): 82.9 ml LAV(MOD-sp4): 79.4 ml Time Measurements MV dec time: 0.27 sec Doppler Measurements AND Calculations MV E max mitchell: 98.9 cm/sec MV V2 max: 104.0 cm/sec MV P1/2t max mitchell: 103.0 cm/sec MV A max mitchell: 80.5 cm/sec MV max P.3 mmHg MV P1/2t: 113.9 msec MV E/A: 1.2 MV V2 mean: 53.4 cm/sec MV dec slope: 265.0 cm/sec2 MV mean P.4 mmHg MVA(P1/2t): 1.9 cm2 MV V2 VTI: 37.2 cm Ao V2 max: 144.9 cm/sec LV V1 max: 130.4 cm/sec PA V2 max: 90.5 cm/sec Ao max P.4 mmHg LV V1 max P.8 mmHg Ao V2 mean: 84.4 cm/sec LV V1 mean P.8 mmHg Ao mean P.4 mmHg LV V1 mean: 75.5 cm/sec Ao V2 VTI: 32.5 cm LV V1 VTI: 31.2 cm TR max mitchell: 287.3 cm/sec TR max P.0 mmHg Interpretation Summary The study was technically difficult. Contrast injection was performed. Left ventricular systolic function is normal. The estimated ejection fraction is 60 %. The left atrium is mildly enlarged. Trivial mitral valve insufficiency. Mild tricuspid valve insufficiency. Mild focal aortic valve thickening. Right ventricular systolic pressure estimated to be 36 mmHg. Transmitral diastolic flow velocities suggest diastolic dysfunction (pseudonormal pattern). Ordering Physician: Ashish Sanchez Referring Physician: Ashish Sanchez Chi Performed By: Brodwolf, Derick, RCS 11/19/171858 Date Jalen Perez MD CC: Ashish Sanchez MD Date Dictated: 11/19/17 0856 Date Transcribed: 11/19/171858 [employer] Center Director: Signed VITAMIN D,25 HYDROXY Collected: 11/14/2017 Status: F Source: [place] 10:24 AM [facility] REPOSITORY TYPE CODE TESTS RESULT OUT OF REFERENCE UNITS RANGE LAB L506.1000 29.95-100.01 ng/mL Low Vitamin D 21.0 25-OH Result Comment: Vitamin D 25(OH) Status Range Deficiency <20 ng/mL (50nmol/L) Insuffciency 20 - 30 ng/mL (50 - 75 nmol/L) Sufficiency 30 - 100 ng/mL (75 - 250 nmol/L) Toxicity >100 ng/mL (>250 nmol/L) Performed By: #### L506.1000, L509.3000 #### [facility] [address] [place], [place], [address] TESTOSTERONE, SERUM TOTAL Collected: 11/14/2017 Status: F Source: [place] 10:24 AM [facility] REPOSITORY TYPE CODE TESTS RESULT OUT OF REFERENCE UNITS RANGE LAB L509.3000 ng/dL Testosterone Normal 233.92 Result Comment: NORMAL REFERENCE RANGES MALE AGE <50 123.06 - 813.86 ng/dL MALE AGE >50 89.98 - 780.10 ng/dL FEMALE PREMENOPAUSE AGE 21 - 60 9.01 - 47.94 ng/dL FEMALE POSTMENOPAUSE AGE 45 - 89 <7.00 - 45.62 ng/dL REFERENCE RANGE AND METHODOLOGY CHANGED 04/18/2017 Performed By: #### L506.1000, L509.3000 #### [facility] [address] [place], [address] CBC W/DIFF, AUTOMATED Collected: 11/14/2017 Status: F Source: [place] 10:24 AM [facility] REPOSITORY TYPE CODE TESTS RESULT OUT OF RANGE REFERENCE UNITS LAB L100.1000 4.4-11.0 K/mm3 Normal WBC 6.1 LAB L100.1200 4.6-6.2 M/mm3 Low RBC 4.18 LAB L100.1300 13.0-16.5 g/dl Low HGB 12.3 LAB L100.1400 40-54 % Low HCT 38.2 LAB L100.1500 80-94 fL Normal MCV 91.4 LAB L100.1600 27.0-32.0 pg Normal MCH 29.4 LAB L100.1700 32-36 g/gl Normal MCHC 32.2 LAB L100.1810 11.6-14.6 % Normal RDW CV 13.9 LAB L100.1820 35.1-43.9 fl High RDW SD 45.9 LAB L100.1900 150-450 K/mm3 Normal PLT 178 LAB L100.2000 6.2-12.0 fl Normal MPV 9.7 LAB L100.2100 47-70 % High NEUT% 72.1 LAB L100.2200 19-41 % Low LY% 16.5 LAB L100.2300 0-10 % Normal MONO% 8.8 LAB L100.2400 0-5 % Normal EO% 2.1 LAB L100.2500 0-1 % Normal BASO% 0.5 LAB L100.2550 0.0-0.9 % Normal IM GRAN % 0.000 Result Comment: IG% - Immature Granulocytes (promyelocytes, myelocytes and metamyelocytes) > 1% indicates that a LEFT SHIFT is Present. LAB L100.2620 2.0-7.7 X10 3/uL Normal Absolute Neut 4.4 LAB L100.2720 0.83-4.51 X10 3/ul Normal Absolute Lymph 1.01 Performed By: #### L100.0100 #### [facility] [address] [place], [place], [address] COMPREHENSIVE METABOLIC Collected: 11/14/2017 Status: F Source: [facility] 10:24 AM [facility] REPOSITORY TYPE CODE TESTS RESULT OUT OF RANGE REFERENCE UNITS LAB L501.0100 74-106 mg/dL High GLU 241 Result Comment: Glucose result greater than or equal to 200 mg/dL suggests DIABETES MELLITUS per A.D.A. criteria. Please note revised GLUCOSE reference range effective 2017. LAB L501.1000 7-18 mg/dL High BUN 20 LAB L501.1100 0.70-1.30 mg/dL Normal CREAT,SERUM 1.22 Result Comment: The validity of the calculated GFR AND GFRAA in patients over 70 years has not been determined. Clinical correlation is essential. LAB L501.1110 >60 mL/min Normal EST GFR 61 Result Comment: Non- GFR Calc LAB L501.1115 >60 mL/min Normal EST GFR - AA 74 Result Comment: GFR Calc LAB L501.1300 10-20 RATIO Normal BUN/CRE 16.4 LAB L501.1500 6.4-8.2 g/dL T Normal PROT 6.6 LAB L501.1800 3.2-5.0 g/dL Normal ALB 3.6 LAB L501.1950 2.2-4.2 g/dL Normal GLOB 3.0 LAB L501.2000 0.9-2.4 RATIO Normal A/G 1.2 LAB L501.2200 8.5-10.1 mg/dL CA Normal 8.7 LAB L501.4100 15-37 U/L Normal AST 27 LAB L501.4305 45-117 U/L High ALK P 118 LAB L501.4405 16-61 U/L Normal ALT 44 LAB L501.4600 0.20-1.00 mg/dL T Normal BILI 0.70 LAB L501.5300 136-145 mmol/L NA Normal 143 LAB L501.5600 3.5-5.1 mmol/L K Normal 4.1 LAB L501.5900 98-107 mmol/L High CL 109 LAB L501.6100 21.0-32.0 mmol/L Normal CO2 25.0 LAB L501.6200 5-15 Normal GAP 9 Performed By: #### L500.4050, L501.9520 #### [facility] [address] [place], [place], [address] THYROID STIM HORMONE Collected: 11/14/2017 Status: F Source: [place] (TSH) 10:24 AM [facility] REPOSITORY TYPE CODE TESTS RESULT OUT OF RANGE REFERENCE UNITS LAB L501.9520 0.358-3.74 uIU/mL Normal TSH 2.09 Performed By: #### L500.4050, L501.9520 #### [facility] [address] [place], [address] CARDIOLOGY VISIT Observed: 10/10/2017 Status: F Source: [place] REPORT 8:21 AM [facility] REPOSITORY [facility] [address] [place] [address] OFFICE VISIT Date of Service: 09/25/17 MR#: [id number] Acct: [id number] Name: EVA ISRAEL Rep #: [id number] : 1940 Provider: Kristi Christianson Age/Sex: 77/M Location: [facility] Status: Signed HPI HPI Details: EVA ISRAEL, is a 77 M who presents to the office today for a cardiovascular follow-up. He has a history of coronary artery disease with stenting into his proximal LAD in 2014, postprocedure atrial fibrillation converted to sinus rhythm with IV amiodarone, diabetes, renal insufficiency and hyperlipidemia. EKG today demonstrates sinus bradycardia with anterior fascicular block. Heart rate 58. Similar to previous. 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 From a cardiac standpoint, patient is doing well. He does not have any chest discomfort/heaviness/tightness. His exercise tolerance is stable for his age. He does not have any worsening symptoms of shortness of breath. He denies any PND. He does not have any orthopnea. He does not have any symptoms of congestive heart failure. He does not have any palpitations that he is aware of. He does not have any lightheadedness or dizziness. He does not have any near-syncope or syncope. He does not have any lower extremity edema. He does not have any symptoms of claudication. Intake Vital Signs09/25/17 Height 6 ft 2 in 09/25/17 Weight: 257 lb 09/25/17 Body Mass Index (BMI) 33.0 09/25/17 Blood Pressure 128/70 Intake Visit Reasons: DOT clearance [employer] Required: No Accompanied by: none Is patient in pain?: No Allergies No Known Allergies Allergy (Verified 09/25/17 09:05) Medications Atorvastatin Calcium [Lipitor] 80 mg PO QHS 07/27/14 [History Confirmed 09/25/17] Gabapentin [Neurontin] 600 mg PO TIDCM 07/27/14 [History Confirmed 09/25/17] Glimepiride [Amaryl] 4 mg PO DAILY 07/27/14 [History Confirmed 09/25/17] Sitagliptin Phosphate [Januvia] 100 mg PO DAILY 07/27/14 [History Confirmed 09/25/17] aspirin 81 mg tablet,delayed release 81 mg PO QDAY 09/25/17 [History Confirmed 09/25/17] clopidogrel 75 mg tablet PO 90 Days #90 09/25/17 [History Confirmed 09/25/17] dulaglutide 1.5 mg/0.5 mL subcutaneous pen injector SC 30 Days #4 09/25/17 [History Confirmed 09/25/17] furosemide 20 mg tablet PO 90 Days #90 09/25/17 [History Confirmed 09/25/17] lisinopril 20 mg tablet PO 90 Days #90 09/25/17 [History Confirmed 09/25/17] metoprolol tartrate 25 mg tablet PO 30 Days #30 09/25/17 [History Confirmed 09/25/17] pioglitazone 30 mg tablet PO 90 Days #90 09/25/17 [History Confirmed 09/25/17] Ejection fraction %: 55 to 59 PFSH Medical History Paroxysmal atrial fibrillation (Chronic) Essential (primary) hypertension (Chronic) HLD (hyperlipidemia) (Chronic) Atherosclerotic heart disease of [place] coronary artery without angina pectoris (Resolved) Surgical History Stented coronary artery (Resolved) History of tonsillectomy (Resolved) History of knee replacement (Resolved) History of hip replacement (Resolved) History of back surgery (Resolved) Family History Sister Hypertension Sister Breast cancer Sister Diabetes Sister Cancer Sister HLD (hyperlipidemia) Social History Smoking Status: Never smoker ROS Const Const: Negative for weakness, fatigue, fever(s) or headache(s) Eyes Eyes: Negative for blind spots, loss of peripheral vision or transient loss of vision ENT ENT: Negative for headache(s), dizziness, tinnitus or Nosebleed/epistaxis Cardio Chest Pain: No Palpitations: No Edema: None Muscle aches with walking: None Resp Respiratory: Negative for SOB with activity, SOB at rest, SOB orthopnea\SOB lying down or Cough GI GI: Negative nausea, vomiting, heartburn or vomiting blood/hematemesis : Negative for hematuria Musc Musc: Negative for muscle aches/ myalgia Neuro Neuro: Negative for weakness, headache(s), dizziness, near syncope, syncope, lightheadedness or orthostatic symptoms Pb Hematologic/Lymphatic: Negative for easy bleeding Endo Endo: Negative for fatigue Cardiology Exam Const Appearance: cooperative, no acute distress and well developed Orientation: alert, awake and oriented x3 Head Head: normocephalic and atraumatic Mouth: moist mucous membranes Eyes General: appearance normal, both eyes and all related structures Conjunctivae: conjunctivae normal Pupils: PERRL EOM: EOM intact bilaterally Neck Neck: normal visual inspection, no lymphadenopathy and no JVD Carotids: Negative bruit Neck Mass: Negative Neck mass Chest Chest inspection: normal inspection of the chest and symmetric chest movement Auscultation: Bilateral: Clear to Auscultation Cardio Palpation: normal PMI Rate: regular rate Rhythm: regular rhythm Heart sounds: S1 normal and S2 normal; negative rub, gallop or murmur GI GI: normal to inspection, soft, no hepatosplenomegaly and bowel sounds present; negative tender Neuro General: alert, awake, oriented x3, CN's II-XI intact bilaterally and moves all extremities Extremities Pulses: Normal: Right Posterior Tibial Pulse, Left Posterior Tibial Pulse, Right Radial Pulse, Left Radial Pulse Lower Extremity Edema: None: Bilateral Psych Psychological: normal affect Supplemental Info Pharmacologic nuclear stress test in March of 2016 was negative for ischemia. Assessment AND Plan 1. Atherosclerosis of [place] coronary artery of [place] heart without angina pectoris I25.10 PCI-stent_LAD at [facility] 2014 Plan - JOAQUIN Augustin Stable, from a cardiac standpoint patient does not have any symptoms of angina. We recommend that they continue with current aggressive medical management and risk factor modification. 2. Essential hypertension I10 Plan - JOAQUIN Augustin Adequately controlled on current medications. Will not make any adjustments. Orders Orders: 3. Pure hypercholesterolemia E78.00; E78.0 Plan - JOAQUIN Augustin These have been managed by his primary care doctor. He will continue with his high intensity statin. 4. Paroxysmal atrial fibrillation I48.0 Plan - JOAQUIN Augustin Patient has not had any further symptomatic recurrence. We will continue to monitor. If he does have any additional recurrence may need to reconsider anticoagulation. Plan Detail Additional Comments - JOAQUIN Augustin In regards to his DOT clearance, pt is not symptomatic, do not feel that any additional tests needs done at this time. Thank you for allowing us to participate in patient's plan of care, if you have any questions please do not hesitate to call. This note was generated using a voice recognition system and there may be incorrect words, spelling or punctuation errors that were not noted when reviewing the office note prior to saving. 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 transplanted heart: [place] heart Essential hypertension I10 Pure hypercholesterolemia E78.00; E78.0 Hyperlipidemia type: pure hypercholesterolemia Paroxysmal atrial fibrillation I48.0 Coding Level of Care Code Off vis,est,level 3 Diagnoses Atherosclerosis of [place] coronary artery of [place] heart without angina pectoris I25.10 [place] vs. transplanted heart: [place] heart Essential hypertension I10 Pure hypercholesterolemia E78.00; E78.0 Hyperlipidemia type: pure hypercholesterolemia Paroxysmal atrial fibrillation I48.0 09/25/17 0944 <Electronically signed by Kristi NUÑEZ> Date Kristi NUÑEZ 10/10/17 0821<Electronically signed by Jose Miller MD> Cosigner Signature: Date (if applicable) Jose Miller MD CC: Ashish Sanchez MD 12 LEAD EKG PERFORMED Observed: 09/25/2017 Status: F [place] [facility] [place] [facility] REPOSITORY [facility] [address] [place] [address] 12 Lead EKG performed by SANIA 09/25/17 0901 MR#: [id number] Acct: [id number] Name: EVA ISRAEL Rep #: [id number] : 1940 77 From: Kristi NUÑEZ Attending Dr: Kristi Christianson Status: DEP AMB Ordering Dr: Kristi Christianson Date: 09/25/17 [place] [facility] [place] Sex: M C Admitted: [facility]/12 Lead EKG [place] [facility] [place] ECG Report Interpretation Sinus Bradycardia -Left axis -anterior fascicular block. -consider old anterior infarct. ABNORMAL Electronically signed on 10/22/2017 at 17:31 by Jose Miller 10/22/17 1736 Date Kristi NUÑEZ CC: Ashish Sanchez MD Date Dictated: 09/25/17900 Date Transcribed: 09/25/17900 Career Center Director: SAIDA Signed CBC W/DIFF, AUTOMATED Collected: 08/23/2017 Status: F Source: [place] 9:15 AM [facility] REPOSITORY TYPE CODE TESTS RESULT OUT OF RANGE REFERENCE UNITS LAB L100.1000 4.4-11.0 K/mm3 Normal WBC 7.0 LAB L100.1200 4.6-6.2 M/mm3 Low RBC 4.27 LAB L100.1300 13.0-16.5 g/dl Normal HGB 13.0 LAB L100.1400 40-54 % Low HCT 38.9 LAB L100.1500 80-94 fL Normal MCV 91.1 LAB L100.1600 27.0-32.0 pg Normal MCH 30.4 LAB L100.1700 32-36 g/gl Normal MCHC 33.4 LAB L100.1810 11.6-14.6 % Normal RDW CV 13.6 LAB L100.1820 35.1-43.9 fl High RDW SD 44.7 LAB L100.1900 150-450 K/mm3 Normal PLT 215 LAB L100.2000 6.2-12.0 fl Normal MPV 9.5 LAB L100.2100 47-70 % Normal NEUT% 65.6 LAB L100.2200 19-41 % Normal LY% 21.8 LAB L100.2300 0-10 % Normal MONO% 9.6 LAB L100.2400 0-5 % Normal EO% 2.3 LAB L100.2500 0-1 % Normal BASO% 0.4 LAB L100.2550 0.0-0.9 % Normal IM GRAN % 0.300 Result Comment: IG% - Immature Granulocytes (promyelocytes, myelocytes and metamyelocytes) > 1% indicates that a LEFT SHIFT is Present. LAB L100.2620 2.0-7.7 X10 3/uL Normal Absolute Neut 4.6 LAB L100.2720 0.83-4.51 X10 3/ul Normal Absolute Lymph 1.52 Performed By: #### L100.0100 #### [facility] [address] [place], [place], [address] COMPREHENSIVE METABOLIC Collected: 08/23/2017 Status: F Source: [facility] 9:15 AM [facility] REPOSITORY TYPE CODE TESTS RESULT OUT OF RANGE REFERENCE UNITS LAB L501.0100 74-106 mg/dL High GLU 201 Result Comment: Glucose result greater than or equal to 200 mg/dL suggests DIABETES MELLITUS per A.D.A. criteria. Please note revised GLUCOSE reference range effective 2017. LAB L501.1000 7-18 mg/dL Normal BUN 18 LAB L501.1100 0.70-1.30 mg/dL Normal CREAT,SERUM 1.15 Result Comment: The validity of the calculated GFR AND GFRAA in patients over 70 years has not been determined. Clinical correlation is essential. LAB L501.1110 >60 mL/min Normal EST GFR 66 Result Comment: Non- GFR Calc LAB L501.1115 >60 mL/min Normal EST GFR - AA 79 Result Comment: GFR Calc LAB L501.1300 10-20 RATIO Normal BUN/CRE 15.7 LAB L501.1500 6.4-8.2 g/dL T Normal PROT 6.6 LAB L501.1800 3.2-5.0 g/dL Normal ALB 3.6 LAB L501.1950 2.2-4.2 g/dL Normal GLOB 3.0 LAB L501.2000 0.9-2.4 RATIO Normal A/G 1.2 LAB L501.2200 8.5-10.1 mg/dL CA Normal 8.6 LAB L501.4100 15-37 U/L Normal AST 20 LAB L501.4305 45-117 U/L High ALK P 123 LAB L501.4405 16-61 U/L Normal ALT 28 LAB L501.4600 0.20-1.00 mg/dL T Normal BILI 0.60 LAB L501.5300 136-145 mmol/L NA Normal 144 LAB L501.5600 3.5-5.1 mmol/L K Normal 4.1 LAB L501.5900 98-107 mmol/L High CL 109 LAB L501.6100 21.0-32.0 mmol/L Normal CO2 28.0 LAB L501.6200 5-15 Normal GAP 7 Performed By: #### L500.4050, L501.9520 #### [facility] [address] [place], [address] THYROID STIM HORMONE Collected: 08/23/2017 Status: F Source: [place] (TSH) 9:15 AM [facility] REPOSITORY TYPE CODE TESTS RESULT OUT OF RANGE REFERENCE UNITS LAB L501.9520 0.358-3.74 uIU/mL Normal TSH 2.89 Performed By: #### L500.4050, L501.9520 #### [facility] [address] [place], [address] VITAMIN D,25 HYDROXY Collected: 08/23/2017 Status: F Source: COLEEN 9:15 AM [facility] REPOSITORY TYPE CODE TESTS RESULT OUT OF REFERENCE UNITS RANGE LAB L506.1000 29.95-100.01 ng/mL Low Vitamin D 25.0 25-OH Result Comment: Vitamin D 25(OH) Status Range Deficiency <20 ng/mL (50nmol/L) Insuffciency 20 - 30 ng/mL (50 - 75 nmol/L) Sufficiency 30 - 100 ng/mL (75 - 250 nmol/L) Toxicity >100 ng/mL (>250 nmol/L) Performed By: #### L506.1000, L509.3000 #### [facility] [address] [place], [address] TESTOSTERONE, SERUM TOTAL Collected: 08/23/2017 Status: F Source: COELEN 9:15 AM [facility] REPOSITORY TYPE CODE TESTS RESULT OUT OF REFERENCE UNITS RANGE LAB L509.3000 ng/dL Testosterone Normal 281.37 Result Comment: NORMAL REFERENCE RANGES MALE AGE <50 123.06 - 813.86 ng/dL MALE AGE >50 89.98 - 780.10 ng/dL FEMALE PREMENOPAUSE AGE 21 - 60 9.01 - 47.94 ng/dL FEMALE POSTMENOPAUSE AGE 45 - 89 <7.00 - 45.62 ng/dL REFERENCE RANGE AND METHODOLOGY CHANGED 04/18/2017 Performed By: #### L506.1000, L509.3000 #### [facility] [address] [place], [address] ALLERGIES ALLERGIES DATE TYPE / CODE NAME / CODE REACTION SEVERITY SOURCE 09/25/2017 Drug No Known Unknown [facility] Allergy/4160 Allergies/F00 Hospital [address](SNOMED 5492605(RXNOR Repository CT) M) 05/08/2010 DRUG/8186256 EZETIMIBE-SIM OTHER: SEE C [facility] 03(SNOMED VASTATIN [facility] CT) Repository ENCOUNTERS ENCOUNTERS ADMIT/DISCHARGE ACCOUNT ADMITTING ENCOUNTER LOCATION SOURCE NUMBER CLASS 05/24/2018/05/24/19 [id number] Ambulatory [address] Repository 05/22/2018 [id number] Ambulatory [facility] ing:POLAB3 Repository 04/18/2018 [id number] Ambulatory [facility] ing:RAD Repository 02/18/2018 [id number] Ambulatory [facility] ing:POLAB3 Repository 11/19/2017 [id number] Ambulatory [facility] ing:[facility]S Repository 11/19/2017 [id number] Ambulatory BMSBuilding:W [facility] Repository 11/14/2017 [id number] Ambulatory [facility] ing:POLAB3 Repository 10/23/2017 [id number] Ambulatory BMSBuilding:B [place] [facility] Repository 09/25/2017/09/26/19 [id number] Ambulatory BMSBuilding:B [place] [facility] Repository 08/23/2017 [id number] Ambulatory [place] [facility] ing:POLAB3 Repository PAYERS PAYERS ENCOUNTER GUARANTOR PAYER SUBSCRIBER SOURCE 05/22/2018 EVA Crocker Primary EVA [id number] [place] Insurance:MEDICARE WRIGHTDOB: Community [address] [place] [address], [place] [facility] [id number] Hospital [address]Rht: [phone]) Number: Repository [phone] () [id number] Date:2018-05-22 05/22/2018 Secondary EVA Horne Insurance:YAMILPPolicy SHANNANDOB: Community Number: [id number] Hospital [id number] Repository Date:8242-22-15QC [facility] [place], [place] [address]HI: 05/22/2018 Tertiary NOT GIVENUNK [place] Insurance:SELF PAY [facility] Number: Effective Repository Date:2018-05-22 04/18/2018 EVA E Primary EVA Horne [id number] [place] Insurance:MEDICARE WRIGHTDOB: [address], [place] PART A [facility] [id number] Hospital [address]Jgl: [phone]) Number: Repository [phone] () [id number] Date:2018-04-18 04/18/2018 Secondary EVA Horne Insurance:AARPPolicy WRIGHTDOB: Community Number: [id number] Hospital [id number] Repository Date:7173-35-62PV [facility] [address], [place] [address]RK: 04/18/2018 Tertiary NOT GIVENUNK [place] Insurance:SELF PAY [facility] Number: Effective Repository Date:2018-04-18 02/18/2018 EVA E Primary EVA oHrne [id number] [facility]:MED[facility]ARE WRIGHTDOB: [address], [place] PART [place] [facility] [id number] Hospital [address]Ekc: [phone]) Number: Repository [phone] () [id number] Date:2018-02-18 02/18/2018 Secondary EVA Horne Insurance:Marnie ISRAELDOB: Community Number: [id number] Hospital [id number] Repository Date:4701-88-46IF [address]FYEQ, [place] [address]LX: 02/18/2018 Tertiary NOT GIVENUNK [place] Insurance:SELF PAY [facility] Number: Effective Repository Date:2018-02-18 11/19/2017 EVA E Primary EVA Horne [id number] Insurance:MEDICARE WRIGHTDOB: [address] PART A [facility] [id number] Hospital [address]Luj: [phone]) Number: Repository [phone] () [id number] Date:2017-11-14 11/19/2017 Secondary EVA E [place] Insurance:AARPPolicy WRIGHTDOB: Community Number: [id number] Hospital [id number] Repository Date:0794-20-54KF [address]X[place]YZLF, [place] [address]JT: 11/19/2017 Tertiary NOT GIVENUNK [place] Insurance:SELF PAY [facility] Hospital Number: Effective Repository Date:2017-11-14 11/19/2017 EVA E Primary EVA Horne [id number] Insurance:MEDICARE WRIGHTDOB: [address] PART A [facility] [id number] Hospital [address]Trt: [phone]) Number: Repository [phone] () [id number] Date:2017-11-14 11/19/2017 Secondary EVA E [place] Insurance:AARPPolicy WRIGHTDOB: Community Number: [id number] Hospital [id number] Repository Date:5586-10-24LG [address], [place] [address]VL: 11/19/2017 Tertiary NOT GIVENUNK [place] Insurance:SELF PAY [facility] Number: Effective Repository Date:2017-11-19 11/14/2017 EVA E Primary EVA Crocker [place] [id number] [place] Insurance:MEDICARE WRIGHTDOB: [facility] PART A [facility] [id number] Number: Repository [phone]: [phone] [id number] [phone] (HP) Date:2017-11-14 11/14/2017 Secondary EVA E [place] Insurance:AARPPolicy WRIGHTDOB: Community Number: [id number] Hospital [id number] Repository Date:1846-19-36EE [address], [place] [address]WC: 11/14/2017 Tertiary NOT GIVENUNK [place] Insurance:SELF PAY [facility] Number: Effective Repository Date:2017-11-14 10/23/2017 EVA E Primary NOT GIVENUNK [place] [id number] [place] Insurance:SELF PAY [address] [place] Number: Effective Repository [id number]: [phone]) Date:2017-04-06 [phone] () 09/25/2017 EVA E Primary EVA Crocker [place] [id number] [place] Insurance:MEDICARE WRIGHTDOB: [facility] PART A [facility] [id number], [place] Number: Repository [phone]: [phone] [id number] [phone] () Date:2017-09-21 09/25/2017 Secondary EVA E [place] Insurance:AARPPolicy WRIGHTDOB: Community Number: [id number] Hospital [id number] Repository Date:0867-37-12DO [address], [place] [address]GB: 09/25/2017 Tertiary NOT GIVENUNK [place] Insurance:SELF PAY [facility] Number: Effective Repository Date:2017-09-25 08/23/2017 Eva E Primary Eva E [place] [id number] [place] Insurance:MEDICARE WrightDOB: [facility] PART A [facility] [id number] [place] Number: Repository [id number]: [phone] [id number] [phone] () Date:2017-08-23 08/23/2017 Secondary Eva E [place] Insurance:AARPPolicy WrightDOB: Community Number: [id number] Hospital [id number] Repository Date:7117-93-01MS [address], [place] [address]LM: 08/23/2017 Tertiary NOT GIVENUNK [place] Insurance:SELF PAY [facility] Number: Effective Repository Date:2017-08-23
== END ==
PROVIDERS: Family Provider Family Medicine Geriatric Medicine; PCP Family Medicine Geriatric Medicine; Visit Provider Family Medicine Geriatric Medicine
DX: E11.9 Type 2 diabetes mellitus without complications (principal); E23.6 Other disorders of pituitary gland; E55.9 Vitamin D deficiency, unspecified; F52.8 Other sexual dysfunction not due to a substance or known physiological condition; I10 Essential (primary) hypertension
CPT/HCPCS: 36415; 80053; 82306; 84403; 84443; 85025

== ENCOUNTER → 2018-05-28 09:38 | Outpatient (CLI) | payer MEDICARE, OTHER, SELFPAY ==
--- NOTE | 2018-05-28 09:57 | MRI_ITS ---
STUDY: MRI LUMBAR SPINE WITHOUT CONTRAST REASON FOR EXAM: Male, 78 years old. Low back pain radiating to the hips and legs TECHNIQUE: Standardized fat and water weighted pulse sequences were obtained in the sagittal and axial planes. COMPARISON: May 26, 2013 FINDINGS: T12-L1: Normal endplates. Normal disc height, desiccation and normal morphology. Normal bilateral facet joints. Normal central canal and bilateral lateral recesses. Normal bilateral intervertebral neural foramina. Normal lumbar lordosis. There is no substantial scoliosis. Normal conus medullaris that terminates at T12-L1. 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 L1-2: Prominent Schmorl's node deformity of the superior endplate of L2. Normal disc height, desiccation and mild annular bulge. Normal bilateral facet joints. Normal central canal and bilateral lateral recesses. Normal bilateral intervertebral neural foramina. L2-3: Normal endplates. Normal disc height, desiccation and mild annular bulge with small bilateral posterolateral/foraminal disc protrusions. Facet arthropathy and thickening of ligamenta flava. Normal central canal. Moderate bilateral recess and severe bilateral neuroforaminal stenosis L3-4: Normal endplates. Normal disc height, desiccation and mild annular bulge. Facet arthropathy and thickening of ligamenta flava. Normal central canal. Moderate to severe bilateral recess and neuroforaminal stenosis exaggerated by shortened pedicles L4-5: Status post right posterior fusion Grade 1 spondylolisthesis Normal endplates. Normal disc height, desiccation and minor bulging disc osteophyte complex . Bilateral facet arthropathy and thickening of ligamenta flava slightly greater on the left.. Normal central canal. Severe bilateral recess and neuroforaminal stenosis greater on the left L5-S1: Normal endplates. Normal disc height, desiccation and normal morphology. Mild facet arthropathy and thickening of ligamenta flava. Normal central canal and bilateral lateral recesses. Mild bilateral neuroforaminal stenosis secondary to bony hypertrophy. Normal visualized sacral ala. Normal visualized paraspinous soft tissue structures. 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
== END ==
PROVIDERS: Family Provider Family Medicine Geriatric Medicine; PCP Family Medicine Geriatric Medicine; Referring Provider Family Medicine Geriatric Medicine; Visit Provider Family Medicine Geriatric Medicine
DX: M54.16 Radiculopathy, lumbar region (principal)
CPT/HCPCS: 72148

== ENCOUNTER → 2018-06-28 06:19 | Outpatient (CLI) | payer MEDICARE, OTHER, SELFPAY ==
--- NOTE | 2018-06-28 15:01 | STRESSREP ---
Stress Test Report Pharmacologic myocardial perfusion stress test. 78-year-old man with a history of coronary artery disease. Preop surgical clearance. Medications: Lipitor, aspirin, metoprolol, clopidogrel, lisinopril. Stress protocol: Resting EKG demonstrates sinus bradycardia with a rate of 59 bpm normal intervals noted resting blood pressure 142/84 mmHg. 0.4 mg of regadenoson was infused per usual protocol followed by rapid intravenous saline flush injection continuous EKG monitoring was performed. Patient maintained sinus rhythm throughout the recording. The maximum heart rate attained was 83 bpm which was 58% of maximum predicted heart rate the maximum workload was 1 metabolic equivalent. At rest there were no ST or T wave changes noted suggest abnormal flow reserve at peak infusion nonspecific ST-T wave changes were noted suggest abnormal flow reserve. Myocardial perfusion protocol: 14.7 mCi of technetium 99m sestamibi was injected at rest. 0.4 mg of regadenoson was infused per usual protocol peak infusion 44.9 mCi of technetium 99m sestamibi was injected stress images were obtained stress and rest images were reconstructed and compared in the short axis vertical long horizontal long axis. Gated images were also obtained Perfusion SPECT analysis: Review of the stress images demonstrate normal uptake of tracer noted in all areas of myocardium. The rest images demonstrate normal uptake of tracer noted in all areas of myocardium. No areas of reversibility are noted suggest ischemia no previous infarct is noted. Gated SPECT analysis: The gated ejection fraction is noted to be 60%. Conclusion: Normal pharmacologic myocardial perfusion stress test Preserved ejection fraction
== END ==
PROVIDERS: Family Provider Family Medicine Geriatric Medicine; PCP Family Medicine Geriatric Medicine; Referring Provider Internal Medicine Cardiovascular Disease; Visit Provider Internal Medicine Cardiovascular Disease
DX: Z01.810 Encounter for preprocedural cardiovascular examination (principal)
CPT/HCPCS: 78452; 93017; A9500; A4216; J2785

== ENCOUNTER → 2018-07-24 14:40 | Outpatient (CLI) | payer MEDICARE, OTHER, SELFPAY ==
[2018-07-24 15:36] LABS: Absolute Lymphocyte Count 1.22 X10^3/ul (0.83-4.51); Absolute Neutrophil Count 7.2 X10^3/uL (2.0-7.7); Basophil# 0.02 X10^3/uL; Basophil% 0.2 % (0-1); Eosinophil# 0.23 X10^3/uL; Eosinophils% 2.4 % (0-5); Hematocrit 32.8 % (40-54); Hemoglobin 10.5 g/dl (13.0-16.5); Lymphocyte # 1.22 X10^3/ul (4.0); Lymphocyte % 12.7 % (19-41); Mean Corpuscular Hgb 29.8 pg (27.0-32.0); Mean Corpuscular Volume 93.2 fL (80-94); Mean Platelet Vol. 9.1 fl (6.2-12.0); Monocyte% 9.4 % (0-10); Neutrophil # 7.22 X10^3/uL (2.7-7.7); Neutrophil % 75.1 % (47-70); Platelet Count 288 K/mm3 (150-450); RBC Distribution Width CV 14.4 % (11.6-14.6); RBC Distribution Width SD 48.4 fl (35.1-43.9); Red Blood Count 3.52 M/mm3 (4.6-6.2); White Blood Count 9.6 K/mm3 (4.4-11.0)
[2018-07-24 15:49] LABS: POSITIVE COUNT NO; POSITIVE DIFFERENTIAL NO; POSITIVE MORPHOLOGY NO
[2018-07-24 15:58] LABS: Anion Gap 7 (5-15); BUN 22 mg/dL (7-18); BUN/Creat Ratio 16.5 RATIO (10-20); Calcium,Total 9.2 mg/dL (8.5-10.1); Chloride 106 mmol/L (98-107); Creatinine, Serum 1.33 mg/dL (0.70-1.30); EST Glomerular Filtration Rate 55 mL/min (>60); Est Glom Filt Rate - Afr Amer 67 mL/min (>60); Glucose 265 mg/dL (74-106); Potassium 4.3 mmol/L (3.5-5.1); Sodium Level 141 mmol/L (136-145)
== END ==
PROVIDERS: Family Provider Family Medicine Geriatric Medicine; PCP Family Medicine Geriatric Medicine; Visit Provider Family Medicine Geriatric Medicine
DX: D64.9 Anemia, unspecified (principal); E11.9 Type 2 diabetes mellitus without complications
CPT/HCPCS: 36415; 80048; 85025

== ENCOUNTER → 2018-08-23 | Outpatient (CLI) | payer MEDICARE, OTHER, SELFPAY ==
[2018-08-23 10:49] LABS: Absolute Lymphocyte Count 1.34 X10^3/ul (0.83-4.51); Absolute Neutrophil Count 5.6 X10^3/uL (2.0-7.7); Basophil# 0.02 X10^3/uL; Basophil% 0.3 % (0-1); Eosinophil# 0.23 X10^3/uL; Eosinophils% 2.9 % (0-5); Hematocrit 35.3 % (40-54); Hemoglobin 11.5 g/dl (13.0-16.5); Lymphocyte # 1.34 X10^3/ul (4.0); Lymphocyte % 17.1 % (19-41); Mean Corp Hgb Conc 32.6 g/gl (32-36); Mean Corpuscular Hgb 30.3 pg (27.0-32.0); Mean Corpuscular Volume 92.9 fL (80-94); Mean Platelet Vol. 8.9 fl (6.2-12.0); Monocyte# 0.66 X10^3/uL; Monocyte% 8.4 % (0-10); Neutrophil # 5.58 X10^3/uL (2.7-7.7); Neutrophil % 71.2 % (47-70); POSITIVE COUNT NO; POSITIVE DIFFERENTIAL NO; POSITIVE MORPHOLOGY NO; Platelet Count 201 K/mm3 (150-450); RBC Distribution Width CV 14.2 % (11.6-14.6); RBC Distribution Width SD 48.1 fl (35.1-43.9); White Blood Count 7.8 K/mm3 (4.4-11.0)
[2018-08-23 11:10] LABS: Vitamin D,25 Hydroxy 19.9 ng/mL (29.95-100.01)
[2018-08-23 11:30] LABS: ALB/GLOB Ratio 1.3 RATIO (0.9-2.4); AST(SGOT) 23 U/L (15-37); Alanine Aminotransfer ALT/SGPT 27 U/L (16-61); Albumin, Serum 3.7 g/dL (3.2-5.0); Alkaline Phosphatase 146 U/L (45-117); Anion Gap 7 (5-15); BUN 25 mg/dL (7-18); BUN/Creat Ratio 21.4 RATIO (10-20); Calcium,Total 8.8 mg/dL (8.5-10.1); Chloride 109 mmol/L (98-107); Creatinine, Serum 1.17 mg/dL (0.70-1.30); EST Glomerular Filtration Rate 64 mL/min (>60); Est Glom Filt Rate - Afr Amer 78 mL/min (>60); Globulin 2.9 g/dL (2.2-4.2); Glucose 247 mg/dL (74-106); Potassium 4.3 mmol/L (3.5-5.1); Protein, Total 6.6 g/dL (6.4-8.2); Sodium Level 142 mmol/L (136-145); Thyroid Stim Hormone (TSH) 1.95 uIU/mL (0.358-3.74)
== END | disposition home or self-care (01) ==
LOC: LAB 10:01
PROVIDERS: Family Provider Family Medicine Geriatric Medicine; PCP Family Medicine Geriatric Medicine; Referring Provider Family Medicine Geriatric Medicine; Visit Provider Family Medicine Geriatric Medicine
DX: E11.9 Type 2 diabetes mellitus without complications (principal); E23.6 Other disorders of pituitary gland; E55.9 Vitamin D deficiency, unspecified; I10 Essential (primary) hypertension
CPT/HCPCS: 36415; 80053; 82306; 84403; 84443; 85025

== ENCOUNTER → 2018-11-20 | Outpatient (CLI) | payer MEDICARE, OTHER, SELFPAY ==
[2018-11-20 11:29] LABS: Absolute Neutrophil Count 5.7 X10^3/uL (2.0-7.7); Basophil# 0.03 X10^3/uL; Basophil% 0.4 % (0-1); Eosinophil# 0.18 X10^3/uL; Eosinophils% 2.2 % (0-5); Hematocrit 37.3 % (40-54); Hemoglobin 12.2 g/dL (13.0-16.5); Lymphocyte % 19.5 % (19-41); Mean Corp Hgb Conc 32.7 g/dL (32-36); Mean Corpuscular Volume 88.8 fL (80-94); Mean Platelet Vol. 9.5 fl (6.2-12.0); Monocyte# 0.73 X10^3/uL; Monocyte% 8.9 % (0-10); NRBC Flagged by Analyzer 0 % (0-5); Neutrophil # 5.65 X10^3/uL (2.7-7.7); Neutrophil % 68.6 % (47-70); Platelet Count 218 K/mm3 (150-450); RBC Distribution Width CV 13.5 % (11.6-14.6); RBC Distribution Width SD 43.8 fl (35.1-43.9); White Blood Count 8.2 K/mm3 (4.4-11.0)
[2018-11-20 11:49] LABS: Vitamin D,25 Hydroxy 19.3 ng/mL (29.95-100.01)
[2018-11-20 11:51] LABS: ALB/GLOB Ratio 1.1 RATIO (0.9-2.4); AST(SGOT) 20 U/L (15-37); Alanine Aminotransfer ALT/SGPT 31 U/L (16-61); Albumin, Serum 3.6 g/dL (3.2-5.0); Alkaline Phosphatase 131 U/L (45-117); Anion Gap 3 (5-15); BUN 20 mg/dL (7-18); BUN/Creat Ratio 19.4 RATIO (10-20); Calcium,Total 8.8 mg/dL (8.5-10.1); Chloride 109 mmol/L (98-107); Creatinine, Serum 1.03 mg/dL (0.70-1.30); EST Glomerular Filtration Rate 74 mL/min (>60); Est Glom Filt Rate - Afr Amer 90 mL/min (>60); Globulin 3.3 g/dL (2.2-4.2); Glucose 210 mg/dL (74-106); Potassium 4.2 mmol/L (3.5-5.1); Protein, Total 6.9 g/dL (6.4-8.2); Sodium Level 139 mmol/L (136-145); Thyroid Stim Hormone (TSH) 2.05 uIU/mL (0.358-3.74)
== END | disposition home or self-care (01) ==
LOC: POLAB3 09:47
PROVIDERS: Family Provider Family Medicine Geriatric Medicine; PCP Family Medicine Geriatric Medicine; Visit Provider Family Medicine Geriatric Medicine
DX: E11.9 Type 2 diabetes mellitus without complications (principal); E55.9 Vitamin D deficiency, unspecified; F52.8 Other sexual dysfunction not due to a substance or known physiological condition; I10 Essential (primary) hypertension
CPT/HCPCS: 36415; 80053; 82306; 84403; 84443; 85025

== ENCOUNTER → 2019-01-07 16:09 | Outpatient (CLI) | payer MEDICARE, OTHER, SELFPAY ==
--- NOTE | 2019-01-07 16:14 | US_ITS ---
STUDY: SCROTUM ULTRASOUND REASON FOR EXAM: Male, 78 years old. Pain in left groin and scrotum TECHNIQUE: Ultrasound evaluation of the scrotum was performed with color Doppler and static canseco-scale imaging. COMPARISON: None. FINDINGS: RIGHT TESTICLE INTRATESTICULAR: There is a normal size of the right testicle. The right testicle measures 4.7 x 3.2 x 2.1 cm. There is a homogenous echotexture. There is normal arterial and normal venous vascularity. There is no demonstrated right testicular mass or cyst. EXTRATESTICULAR: The epididymis is normal in size. The epididymis head measures 1 x 0.7 x 0.6 cm. There is normal vascularity of the epididymis. Tiny epididymal cyst measuring 3 x 3 x 3 mm. There is no demonstrated hydrocele. There is no demonstrated varicocele. There is no demonstrated extratesticular mass or cyst. LEFT TESTICLE INTRATESTICULAR: There is a normal size of the left testicle. The left testicle measures 3.9 x 2.9 x 2.4 cm. There is a homogenous echotexture. There is normal arterial and normal venous vascularity. There is no demonstrated left testicular mass or cyst. EXTRATESTICULAR: The epididymis is normal in size. The epididymis head measures 1.2 x 1.3 x 0.9 cm. There is normal vascularity of the epididymis. Tiny epididymal cyst measuring 9 x 8 x 7 mm. There is a complex hydrocele demonstrating thick-walled septations possibly inflammatory. There is no demonstrated varicocele. There is no demonstrated extratesticular mass or cyst. US/Testicular with Arterial Flow IMPRESSION: Complex hydrocele in the left scrotal sac with thick-walled septations possibly inflammatory or posttraumatic. Herniation of bowel into the scrotal sac may create similar appearance however clinical correlation recommended. CT would be useful for further assessment in this regard Electronically Signed: Isidoro Day MD at 17:18 EDT , Service support ,
== END ==
PROVIDERS: Family Provider Family Medicine Geriatric Medicine; PCP Family Medicine Geriatric Medicine; Referring Provider Family Medicine Geriatric Medicine; Visit Provider Family Medicine Geriatric Medicine
DX: N50.82 Scrotal pain (principal)
CPT/HCPCS: 76870; 93976

== ENCOUNTER → 2019-02-18 11:55 | Outpatient (CLI) | payer MEDICARE, OTHER, SELFPAY ==
[2019-02-18 12:55] LABS: Absolute Lymphocyte Count 1.27 X10^3/uL (0.83-4.51); Absolute Neutrophil Count 5.4 X10^3/uL (2.0-7.7); Basophil# 0.04 X10^3/uL; Basophil% 0.5 % (0-1); Eosinophil# 0.24 X10^3/uL; Eosinophils% 3.1 % (0-5); Hematocrit 36.9 % (40-54); Hemoglobin 11.9 g/dL (13.0-16.5); Lymphocyte # 1.27 X10^3/ul (4.0); Lymphocyte % 16.6 % (19-41); Mean Corp Hgb Conc 32.2 g/dL (32-36); Mean Corpuscular Hgb 30.2 pg (27.0-32.0); Mean Corpuscular Volume 93.7 fL (80-94); Mean Platelet Vol. 9.4 fl (6.2-12.0); Monocyte# 0.65 X10^3/uL; Monocyte% 8.5 % (0-10); NRBC Flagged by Analyzer 0 % (0-5); Neutrophil # 5.39 X10^3/uL (2.7-7.7); Neutrophil % 70.8 % (47-70); Platelet Count 192 K/mm3 (150-450); RBC Distribution Width SD 44.3 fl (35.1-43.9); Red Blood Count 3.94 M/mm3 (4.6-6.2); White Blood Count 7.6 K/mm3 (4.4-11.0)
[2019-02-18 14:00] LABS: ALB/GLOB Ratio 1.3 RATIO (0.9-2.4); AST(SGOT) 17 U/L (15-37); Alanine Aminotransfer ALT/SGPT 22 U/L (16-61); Albumin, Serum 3.7 g/dL (3.2-5.0); Alkaline Phosphatase 113 U/L (45-117); Anion Gap 3 (5-15); BUN 27 mg/dL (7-18); BUN/Creat Ratio 23.5 RATIO (10-20); Chloride 111 mmol/L (98-107); Creatinine, Serum 1.15 mg/dL (0.70-1.30); EST Glomerular Filtration Rate 65 mL/min (>60); Est Glom Filt Rate - Afr Amer 79 mL/min (>60); Globulin 2.9 g/dL (2.2-4.2); Glucose 222 mg/dL (74-106); Potassium 4.5 mmol/L (3.5-5.1); Protein, Total 6.6 g/dL (6.4-8.2); Sodium Level 142 mmol/L (136-145); Thyroid Stim Hormone (TSH) 2.41 uIU/mL (0.358-3.74)
== END ==
PROVIDERS: Family Provider Family Medicine Geriatric Medicine; PCP Family Medicine Geriatric Medicine; Visit Provider Family Medicine Geriatric Medicine
DX: E11.9 Type 2 diabetes mellitus without complications (principal); E55.9 Vitamin D deficiency, unspecified; F52.8 Other sexual dysfunction not due to a substance or known physiological condition; I10 Essential (primary) hypertension
CPT/HCPCS: 36415; 80053; 82306; 84403; 84443; 85025

== ENCOUNTER → 2019-06-04 15:39 | Outpatient (CLI) | payer MEDICARE, OTHER, SELFPAY ==
[2019-06-04 14:22] VITALS: BMI 29.9
--- NOTE | 2019-06-04 15:45 | RAD_ITS ---
STUDY: X-RAY - ABDOMEN/PELVIS REASON FOR EXAM: Male, 79 years old. DIARRHEA X1 MONTH TECHNIQUE: AP supine and upright views of the abdomen and pelvis. COMPARISON: None. FINDINGS: Normal visualized lung bases. No dilated loops of small bowel. Moderate fecal residue of the right and left colon. There is no demonstrated free abdominal air. The visualized liver, spleen and kidneys are grossly normal in size and morphology. Normal soft tissue structures. Operative changes of the lower lumbar spine. Left hip replacement noted. Linear density projecting over the left pubic symphysis could represent Rizvi catheter. Correlate clinically. RAD/Abd Inc Decub and/or Erect IMPRESSION: Moderate fecal residue of the colon. No dilated loops of air-filled small bowel. Electronically Signed: Giovanni Baxter MD (Brooks) at 12:58 EST , Service support ,
== END ==
PROVIDERS: PCP Family Medicine Geriatric Medicine; Referring Provider Family Medicine Geriatric Medicine; Visit Provider Family Medicine Geriatric Medicine
DX: R19.7 Diarrhea, unspecified (principal)
CPT/HCPCS: 74019

== ENCOUNTER → 2019-09-10 10:08 | Outpatient (CLI) | payer MEDICARE, OTHER, SELFPAY ==
[2019-06-04 14:22] VITALS: BMI 29.9
[2019-09-10 12:25] LABS: Absolute Lymphocyte Count 1.35 X10^3/uL (0.83-4.51); Absolute Neutrophil Count 5.9 X10^3/uL (2.0-7.7); Basophil# 0.02 X10^3/uL; Basophil% 0.2 % (0-1); Eosinophil# 0.19 X10^3/uL; Eosinophils% 2.3 % (0-5); Hematocrit 33.4 % (40-54); Hemoglobin 10.6 g/dL (13.0-16.5); Lymphocyte # 1.35 X10^3/ul (4.0); Lymphocyte % 16.4 % (19-41); Mean Corp Hgb Conc 31.7 g/dL (32-36); Mean Corpuscular Hgb 28.6 pg (27.0-32.0); Mean Platelet Vol. 9.3 fl (6.2-12.0); Monocyte# 0.74 X10^3/uL; NRBC Flagged by Analyzer 0 % (0-5); Neutrophil % 71.7 % (47-70); Platelet Count 205 K/mm3 (150-450); RBC Distribution Width CV 13.3 % (11.6-14.6); RBC Distribution Width SD 43.7 fl (35.1-43.9); Red Blood Count 3.71 M/mm3 (4.6-6.2); White Blood Count 8.2 K/mm3 (4.4-11.0)
[2019-09-10 12:41] LABS: Vitamin D,25 Hydroxy 35.8 ng/mL
[2019-09-10 12:50] LABS: ALB/GLOB Ratio 1.1 RATIO (0.9-2.4); AST(SGOT) 17 U/L (15-37); Alanine Aminotransfer ALT/SGPT 25 U/L (16-61); Albumin, Serum 3.4 g/dL (3.2-5.0); Alkaline Phosphatase 190 U/L (45-117); Anion Gap 8 (5-15); BUN 21 mg/dL (7-18); BUN/Creat Ratio 18.6 RATIO (10-20); Calcium,Total 8.6 mg/dL (8.5-10.1); Chloride 108 mmol/L (98-107); Creatinine, Serum 1.13 mg/dL (0.70-1.30); EST Glomerular Filtration Rate 67 mL/min (>60); Est Glom Filt Rate - Afr Amer 80 mL/min (>60); Globulin 3.1 g/dL (2.2-4.2); Glucose 328 mg/dL (74-106); Potassium 3.9 mmol/L (3.5-5.1); Protein, Total 6.5 g/dL (6.4-8.2); Sodium Level 141 mmol/L (136-145); Thyroid Stim Hormone (TSH) 2.61 uIU/mL (0.358-3.74)
== END ==
PROVIDERS: PCP Family Medicine Geriatric Medicine; Visit Provider Family Medicine Geriatric Medicine
DX: E11.9 Type 2 diabetes mellitus without complications (principal); E55.9 Vitamin D deficiency, unspecified; F52.8 Other sexual dysfunction not due to a substance or known physiological condition; I10 Essential (primary) hypertension
CPT/HCPCS: 36415; 80053; 82306; 84403; 84443; 85025

== ENCOUNTER → 2019-09-12 11:15 | Outpatient (CLI) | payer MEDICARE, OTHER, SELFPAY ==
[2019-06-04 14:22] VITALS: BMI 29.9
[2019-09-12 12:50] LABS: Absolute Lymphocyte Count 1.32 X10^3/uL (0.83-4.51); Absolute Neutrophil Count 5.3 X10^3/uL (2.0-7.7); Basophil# 0.03 X10^3/uL; Basophil% 0.4 % (0-1); Eosinophil# 0.25 X10^3/uL; Eosinophils% 3.2 % (0-5); Hematocrit 34.8 % (40-54); Lymphocyte # 1.32 X10^3/ul (4.0); Lymphocyte % 16.9 % (19-41); Mean Corp Hgb Conc 31.6 g/dL (32-36); Mean Corpuscular Hgb 28.9 pg (27.0-32.0); Mean Corpuscular Volume 91.3 fL (80-94); Mean Platelet Vol. 9.3 fl (6.2-12.0); Monocyte# 0.84 X10^3/uL; Monocyte% 10.7 % (0-10); NRBC Flagged by Analyzer 0 % (0-5); Neutrophil # 5.34 X10^3/uL (2.7-7.7); Neutrophil % 68.3 % (47-70); Platelet Count 198 K/mm3 (150-450); RBC Distribution Width CV 13.3 % (11.6-14.6); RBC Distribution Width SD 44.5 fl (35.1-43.9); RET-HE 32.7 pg (30-35); Red Blood Count 3.81 M/mm3 (4.6-6.2); Reticulocyte Count 1.38 % (0.5-1.5); White Blood Count 7.8 K/mm3 (4.4-11.0)
[2019-09-12 13:04] LABS: Vitamin B12 237 pg/mL (211-911)
[2019-09-12 13:14] LABS: Ferritin 38 ng/mL (26-388); Iron 60 ug/dL (65-175); Iron Binding Capacity,Total 284 ug/dL (250-450)
== END ==
PROVIDERS: PCP Family Medicine Geriatric Medicine; Visit Provider Family Medicine Geriatric Medicine
DX: D64.9 Anemia, unspecified (principal)
CPT/HCPCS: 36415; 82607; 82728; 82746; 83540; 83550; 85025; 85045

== ENCOUNTER → 2019-09-24 09:30 | Outpatient (CLI) | payer MEDICARE, OTHER, SELFPAY ==
[2019-06-04 14:22] VITALS: BMI 29.9
[2019-09-24 08:25] VITALS: BMI 29.9
[2019-09-24 10:30] LABS: Homocysteine 17.2 umol/L (3.2-10.7)
== END ==
PROVIDERS: PCP Family Medicine Geriatric Medicine; Visit Provider Family Medicine Geriatric Medicine
DX: R68.89 Other general symptoms and signs (principal); E72.11 Homocystinuria
CPT/HCPCS: 36415; 83090

== ENCOUNTER → 2019-10-01 15:18 | Outpatient (CLI) | payer MEDICARE, OTHER, SELFPAY ==
[2019-09-24 08:25] VITALS: BMI 29.9
[2019-10-01 15:45] LABS: Absolute Lymphocyte Count 1.32 X10^3/uL (0.83-4.51); Absolute Neutrophil Count 5.3 X10^3/uL (2.0-7.7); Basophil# 0.04 X10^3/uL; Basophil% 0.5 % (0-1); Eosinophil# 0.25 X10^3/uL; Eosinophils% 3.2 % (0-5); Hematocrit 36.8 % (40-54); Hemoglobin 11.8 g/dL (13.0-16.5); Lymphocyte # 1.32 X10^3/ul (4.0); Lymphocyte % 17.1 % (19-41); Mean Corp Hgb Conc 32.1 g/dL (32-36); Mean Corpuscular Hgb 28.7 pg (27.0-32.0); Mean Corpuscular Volume 89.5 fL (80-94); Mean Platelet Vol. 9.2 fl (6.2-12.0); Monocyte% 10.4 % (0-10); NRBC Flagged by Analyzer 0 % (0-5); Neutrophil # 5.27 X10^3/uL (2.7-7.7); Neutrophil % 68.4 % (47-70); Platelet Count 231 K/mm3 (150-450); RBC Distribution Width CV 13.3 % (11.6-14.6); RBC Distribution Width SD 43.3 fl (35.1-43.9); Red Blood Count 4.11 M/mm3 (4.6-6.2); White Blood Count 7.7 K/mm3 (4.4-11.0)
[2019-10-01 16:05] LABS: AST(SGOT) 14 U/L (15-37); Alanine Aminotransfer ALT/SGPT 18 U/L (16-61); Albumin, Serum 3.5 g/dL (3.2-5.0); Alkaline Phosphatase 195 U/L (45-117); Anion Gap 6 (5-15); BUN 24 mg/dL (7-18); BUN/Creat Ratio 18.9 RATIO (10-20); Chloride 109 mmol/L (98-107); Creatinine, Serum 1.27 mg/dL (0.70-1.30); EST Glomerular Filtration Rate 58 mL/min (>60); Est Glom Filt Rate - Afr Amer 70 mL/min (>60); Globulin 3.4 g/dL (2.2-4.2); Glucose 331 mg/dL (74-106); Potassium 4.2 mmol/L (3.5-5.1); Protein, Total 6.9 g/dL (6.4-8.2); Sodium Level 142 mmol/L (136-145); Thyroid Stim Hormone (TSH) 1.93 uIU/mL (0.358-3.74)
== END ==
PROVIDERS: PCP Family Medicine Geriatric Medicine; Visit Provider Family Medicine Geriatric Medicine
DX: R53.83 Other fatigue (principal); N39.0 Urinary tract infection, site not specified
CPT/HCPCS: 36415; 74176; 80053; 84443; 85025; 87086; 87088

== ENCOUNTER → 2019-10-01 17:02 | Outpatient (CLI) | payer MEDICARE, OTHER, SELFPAY ==
[2019-09-24 08:25] VITALS: BMI 29.9
--- NOTE | 2019-10-01 17:06 | CT_ITS ---
STUDY: CT ABDOMEN AND PELVIS WITHOUT CONTRAST REASON FOR EXAM: Male, 79 years old. FLANK PAIN, LT SIDE RADIATES TO BACK RADIATION DOSAGE (If Supplied By Facility): CTDIvol = ( 19.47 ) mGy, DLP = ( 1026.42 ) mGycm TECHNIQUE: Transaxial images were obtained from the dome of the diaphragm to the symphysis pubis without oral contrast, and without intravenous contrast. Sagittal and coronal images were reconstructed. Individualized dose optimization techniques were used for this CT. COMPARISON: AP supine and upright views of the abdomen and pelvis June 04, 2019. FINDINGS: There are very small dependent bilateral pleural effusions. The heart is borderline enlarged. Mild calcification seen in the coronary arteries and distal descending thoracic aorta. Normal liver. The portal vein diameter is 17 mm. Normal gallbladder and extrahepatic biliary system. The diameter of the common bile duct is 6.8 mm. Normal spleen. Normal pancreas. Normal bilateral adrenal glands. Normal right kidney. Normal left kidney. No hydronephrosis. Normal visualized stomach. Normal small intestine. Normal colon. The appendix is visualized and appears normal. There is moderately diffuse atherosclerotic calcification of the abdominal aorta, without a demonstrated aneurysm. Normal inferior vena cava. Normal retroperitoneum. Normal urinary bladder. There is enlargement of the prostate gland, measuring 5.3 x 4.5 x 3.75 cm (R 47 cc). Normal abdominal wall. There are diffuse degenerative changes of the visualized spine. Patient is undergone prior bilateral L4 laminectomies and posterior lumbar fusion with metal hardware. Bilateral transpedicular screws L-1-L5 are connected either side of the longitudinal metal rods. Some lucency is noted about the transpedicular screws at L1. There is a compression fracture deformity in the right superior L2 vertebral endplate that extends to the inferior margin of the right transpedicular screw at that level. Anterior depression of the superior T12 vertebral endplate and slight anterior wedging at T11 also noted. There is minor anterolisthesis of L3 on L4 as well as L4 on L5. Degenerative changes seen in the inferior aspect of the right sacroiliac joint. Patient has undergone prior left total hip arthroplasty, and a metal bipolar hip prosthesis is present. CT/Abdomen/Pelvis without Cont IMPRESSION: 1. Prior L4 laminectomies again noted. Posterior fusion of the lumbar spine with metal hardware has extended down to L1-L5. There are fracture deformities of the T12 and L2 vertebrae, as described, age uncertain. Some lucency is also seen about the transpedicular screws at L1. There are multilevel degenerative changes of the spine. 2. Prior left total hip arthroplasty again noted. 3. Atherosclerotic vascular calcifications noted. There is borderline cardiac enlargement. No abdominal aortic aneurysm. 4. Mildly enlarged prostate gland. No hydronephrosis. 5. The bowel is unremarkable without sign of obstruction. 6. Very small dependent bilateral pleural effusions present. Electronically Signed: Cas Raya MD at 18:05 EDT , Service support ,
== END ==
PROVIDERS: PCP Family Medicine Geriatric Medicine; Referring Provider Family Medicine Geriatric Medicine; Visit Provider Family Medicine Geriatric Medicine
DX: R10.9 Unspecified abdominal pain (principal)
CPT/HCPCS: 74176

== ENCOUNTER 2019-10-06 07:33 | Day surgery (SDC) | payer MEDICARE, OTHER, SELFPAY ==
[2019-09-24 08:25] VITALS: BMI 29.9
--- NOTE | 2019-09-24 08:51 | HP_ITS ---
Intake Vital Signs 09/24/19 BP 175/81 H 09/24/19 Blood Pressure Location Lt brachial 09/24/19 BMI 29.9 09/24/19 Height 6 ft 2 in 09/24/19 Weight: 238 lb 09/24/19 BMI 30.5 09/24/19 BP 189/91 H 09/24/19 Blood Pressure Location Rt brachial 09/24/19 Position Sitting 09/24/19 Respiration 20 H 09/24/19 Pulse 59 L 09/24/19 Pulse Source Monitor 09/24/19 Temp 97.8 F 09/24/19 Temp Source Temporal 09/24/19 Pulse Oximetry (%) 97 09/24/19 Oxygen Delivery Method room air Intake Visit Reasons: ANEMIA EGD/ COLONOSCOPY Chief Complaint: Anemia Follow Up Rep Required: No Is patient in pain?: No Allergies No Known Allergies Allergy (Verified 09/24/19 08:25) Medications Atorvastatin Calcium [Lipitor] 80 mg PO QHS 07/27/14 [History Confirmed 09/24/19] Gabapentin [Neurontin] 600 mg PO TIDCM 07/27/14 [History Confirmed 09/24/19] Sitagliptin Phosphate [Januvia] 100 mg PO DAILY 07/27/14 [History Confirmed 09/24/19] aspirin 81 mg tablet,delayed release 81 mg PO QDAY 09/25/17 [History Confirmed 09/24/19] clopidogrel 75 mg tablet PO 90 Days #90 09/25/17 [History Confirmed 09/24/19] dulaglutide 1.5 mg/0.5 mL subcutaneous pen injector SC 30 Days #4 09/25/17 [History Confirmed 09/24/19] furosemide 20 mg tablet PO 90 Days #90 09/25/17 [History Confirmed 09/24/19] lisinopril 20 mg tablet PO 90 Days #90 09/25/17 [History Confirmed 09/24/19] metoprolol tartrate 25 mg tablet PO 30 Days #30 09/25/17 [History Confirmed 09/24/19] pioglitazone 30 mg tablet PO 90 Days #90 09/25/17 [History Confirmed 09/24/19] glimepiride 4 mg tablet 4 mg PO BID tab 06/27/18 [History Confirmed 09/24/19] levothyroxine 25 mcg capsule 25 mcg PO DAILY 06/27/18 [History Confirmed 09/24/19] nitroglycerin 0.4 mg sublingual tablet 0.4 mg SUBLINGUAL Q5-15M PRN #25 tab 02/14/19 [Rx Confirmed 09/24/19] PFS Medical History Atherosclerotic heart disease of [place] coronary artery without angina pectoris (Chronic) Paroxysmal atrial fibrillation (Chronic) Essential (primary) hypertension (Chronic) HLD (hyperlipidemia) (Chronic) Anemia (Acute) Iron deficiency anemia (Acute) Chronic kidney disease (Chronic) Surgical History History of coronary artery stent placement (Resolved 07/28/14) History of back surgery (Resolved) History of hip replacement (Resolved) History of knee replacement (Resolved) History of tonsillectomy (Resolved) Family History Sister Hypertension Sister Breast cancer Sister Diabetes Sister Cancer Sister HLD (hyperlipidemia) Social History (Updated 09/24/19 @ 08:[address] Janae Calixto MD) Smoking Status: Never smoker alcohol intake: never substance use type: does not use HPI HPI HPI: EVA CAMPBELL, is a 79 M who presents to the office today for HPI HPI Surgical H&P: Yes HPI: EVA CAMPBELL, is a 79 M who presents to the office today for EGD and colonoscopy due to anemia. Patient states he has bowel movements daily denies any blood. Patient did not complete the fecal occult test given to him by his PCP yet. Patient denies any family history of colon cancer, denies any previous history of colonoscopy or EGD, denies any abdominal pain or reflux or nausea. Patient is on aspirin Plavix due to previous stent in 2014, he is able to come off of the Plavix. Patient's hemoglobin has been around 11 about a year ago it was low 12's. ROS General General: Yes weight change and fatigue; no colon cancer, breast cancer or weakness HEENT HEENT: No difficulty swallowing, eye injury, eye surgery, swollen glands or hoarseness Endo Endocrine: Yes diabetes mellitus; no thyroid disease, thyroid cancer, Hair loss, heat intolerance or cold intolerance Skin Skin: No rash or changing moles Breast Breast: No left breast lump, right breast lump, nipple discharge, breast pain, abnormal mammogram, abnormal US or breast enlargement Musc Musculoskeletal: Yes back problems, arthritis and rheumatoid arthritis; no gout or joint pain Cardio Cardiovascular: Yes heart disease, high blood pressure and heart stent; no pacemaker, atrial fibrillation, heart attack, palpitations, shortness of breat with exertion or chest pain Psych Psychiatric: No depression, anxiety or hearing voices Resp Respiratory: Yes shortness of breath, No sleep apnea, No cough, No COPD, No asthma, No emphysema, No wheezing Gastro Gastrointestinal: No abdominal pain, No nausea or vomiting, No diarrhea, No constipation, No blood in stool, No acid reflux, No hemorrhoids, No ulcers, No gallbladder problem, No black,tarry stools Pb Hematologic: Yes blood thinners, No blood disorders, No bleeding, No anemia, No blood clots Neuro Neurologic: No system reviewed and no additional complaints, except as docu, No as per HPI, No abnormal walking, No abnormal hearing, No abnormal movements, No abnormal speech, No behavioral changes, No burning sensations, No confusion, No seizure-like activity, No unsteadiness, No dizziness, No localized weakness, No frequent falls, No headache(s), No lack of coordination, No loss of vision, No memory loss, Yes numbness, No other visual disturbances, No radiating pain, No restless legs, No sensory deficit, No fainting, Yes tingling, No tremor(s), No weakness, No other Exam Const General: cooperative, no acute distress, well developed Chest Breast Palpation: No nipple discharge Resp Effort & Inspection: normal respiratory effort Cardio Rhythm: regular rhythm GI Inspection: non-distended Palpation: soft, no guarding, nontender Neuro General: CN's II-XI intact bilaterally Psych Affect: normal affect Assessment & Plan Problems 1. Anemia D64.9 Plan I have discussed the above with the patient. I have offered the patient EGD and colonoscopy for evaluation. I have explained the risks/benefits of the procedure and described the procedure. I have discussed the risks with the patient, including but not limited to: infection, bleeding, perforation of the GI tract requiring emergency surgery, inability to complete the procedure, injury to any internal organs, complications of anesthesia, etc. - the patient understands and agrees to proceed. I have answered all the patient's questions to the patient's satisfaction and the patient has no further questions. The patient has been given instructions for the colon cleansing preparation. One day of clears MiraLAX/Dulcolax split prep We discussed the current risks associated with COVID-19. While it is understood that there is a community spread of COVID-19, the risk of gonzalez COVID-19 while at [facility] ([facility]) is very low; however, the risk cannot be completely mitigated because of the community spread of the disease. We discussed in detail the risk of exposure to and/or potential harm posed by the COVID-19 virus with having a surgery/procedure at this time versus the risk of delaying the surgery/procedure. It is not possible to know either the risk of delaying the surgery or procedure or chance of getting an infection with perfect accuracy, but a joint decision was made to proceed at this time with the scheduled surgery/procedure as indicated on the consent form. Patient was notified that we will need to comply with any screening or testing [facility] wishes to perform or that surgery may be delayed for any positive results. Janae Calixto M.D. Pager: [phone] [facility] [address] [place] [address], [address] [place] [address] Office: [phone] Orders Orders: Colonoscopy Today EGD Today Plan Detail Follow Up We will schedule EGD and colonoscopy Coding Level of Care Code Off vis,new,level 3 Diagnoses Anemia D64.9 09/24/19 0852 <Electronically signed by Janae Galvan am, MD> Date _ Janae Calixto MD I have examined the patient the following changes are noted: Patient states that his bowel movements are still brown however they are liquid we will try a tapwater enema prior to procedure. Did inform patient if I can see well would be a limited study may need to repeat however patient does not have any plans to come back for repeat colonoscopy.
[2019-10-05 10:49] LABS: Probe Check PASS; Specimen Processing Control PASS
[2019-10-06] VITALS (7 sets, daily range): BP systolic 146–180; BP diastolic 73–96; PULSE 54–58; RESP 16–18; TEMP 35.9–36.6; O2SAT 99–100; BMI 29.0
[2019-10-06 08:31] LABS: Bedside Glucose 122 mg/dL (70-110)
--- NOTE | 2019-10-06 09:00 | IMM_PTH ---
PATIENT: EVA CAMPEBLL LOC: [facility] U#:[id number] AGE/SX: 79/M ROOM: RE10/06/[address]: Dr. Janae Calixto MD : 1940 BED: DIS: 10/06/2019 SPEC #: [id number] RECD: 10/07/19 09:40 STATUS: NIEVES REQ #: [id number] HUGO: 10/06/19 09:[address]: Janae Calixto DEPT: IMMUNOHISTOCHEMISTRY RECD BY: Maribel Finney ENTERED: 10/07/19 09:41 SP TYPE: IMMUNO OTHR DR: Dr. Duarte Sanchez MD Tissues: A - Pyloric portion of stomach B - Stomach, NOS Procedures: H Pylori (initial) PHYSICIAN & [place] [address] SPECIMEN INFORMATION: Tissue Source: A - Prepyloric biopsy, B - Antrum biopsy Clinical Info: Anemia Specimen Number: [id number] A & B CPT code: 44833 x2 METHODOLOGY: Deparaffinized sections of prefer/formalin-fixed tissue or PAP/DQ stained slides are incubated with monoclonal/polyclonal antibodies/oligonucleotide probes. Localization is made via biotin free immunoperoxidase method. Appropriate controls are performed and reacted as expected. Results on target cell population are indicated in the following table: RESULTS: ANTIBODY / CLONE RESULT Block A H Pylori (polyclonal) negative Block B H Pylori (polyclonal) negative These tests were developed and their performance characteristics determined by [facility]. They may not have been cleared or approved by the U.S. Food and Drug Administration. The FDA has determined that such clearance or approval is not necessary. INTERPRETATION: A. Prepyloric biopsy: Negative for Helicobacter pylori organisms. B. Antrum biopsy: Negative for Helicobacter pylori organisms. SJ:diana 10/08/19
--- NOTE | 2019-10-06 09:00 | EGD_PTH ---
PATIENT: EVA CAMPBLEL LOC: [facility] U#:[id number] AGE/SX: 79/M ROOM: RE10/06/[address]: Dr. Janae Calixto MD : 1940 BED: DIS: 10/06/2019 SPEC #: [id number] RECD: 10/06/19 13:03 STATUS: NIEVES MEGAN #: [id number] HUGO: 10/06/19 09:[address]: Janae Calixto DEPT: SURGICAL PATHOLOGY RECD BY: Arpit Hoffman ENTERED: 10/06/19 13:27 SP TYPE: EGD BIOPSY OT DR: Dr. Duarte Sanchez MD Tissues: A - Gastric mucous membrane B - Gastric mucous membrane C - Gastric mucous membrane D - Descending colon Procedures: Trichrome (control) Special Stain Group II Surgery Specimen Level IV Alcian Blue/PAS (control) HEADER OPERATION: Colonoscopy, EGD ([facility] [place] PRE-OP DIAGNOSIS: Anemia TISSUE SUBMITTED: A - Prepyloric biopsy for histo and H. pylori, B - Antrum biopsy for histo and H.?pylori, C - GE junction biopsy, D - Descending polyp (snare) MICROSCOPIC DIAGNOSIS A. Prepyloric biopsy: Mild gastritis. See microscopic description and comment. B. Antrum biopsy: Mild gastritis. See microscopic description and comment. C. GE junction, biopsy: Fragments of gastric mucosa with mild chronic inflammation. Intestinal metaplasia (goblet cell metaplasia) is not identified. See comment. D. Descending polyp, biopsy: A polypoid fragment of colonic mucosa with changes consistent with collagenous colitis. Fragments of fecal material. See comment. SJ:rg 10/08/19 COMMENT A & B. The results of immunohistochemistry for Helicobacter pylori will be reported separately ([id number]). C. Alcian blue/PAS stain with matched control is used in the evaluation of the specimen. D. Trichrome stain with matched control is used in the evaluation of this case and shows focal thickening of subepithelial collagen band. Correlation with clinical, endoscopic findings and appropriate follow up are necessary. MICROSCOPIC DESCRIPTION Slides are reviewed. A & B. The specimen shows fragments of gastric mucosa with chronic inflammatory cell infiltrates in the lamina propria consisting of lymphocytes and plasma cells, consistent with mild chronic gastritis. GROSS DESCRIPTION A - Received in fixative is one container labeled with the patient's name and designated prepyloric biopsy. The specimen consists of three irregular fragments of light kelley soft tissue that in aggregate measure 0.5 x 0.2 x 0.1 cm. The specimen is totally submitted in one cassette. B - Received in fixative is one container labeled with the patient's name and designated antrum biopsy. The specimen consists of multiple irregular fragments of light kelley soft tissue that in aggregate measure 0.4 x 0.2 x 0.1 cm. The specimen is totally submitted in one cassette. C - Received in fixative is one container labeled with the patient's name and designated GE junction biopsy. The specimen consists of multiple irregular fragments of light kelley soft tissue that in aggregate measure 0.3 x 0.3 x 0.1 cm. The specimen is totally submitted in one cassette. D - Received in fixative is one container labeled with the patient's name and designated descending polyp. The specimen consists of multiple irregular fragments of light kelley soft tissue mixed with fecal material that in aggregate measure 1 x 0.2 x 0.1 cm. The specimen is totally submitted in one cassette. / SJ:rg 10/07/19 TC:2 CPT: 39481 x4, 16535 x2
[2019-10-06] MEDS: Lactated Ringers 1,000 ML 100 ML IV (09:01)
--- NOTE | 2019-10-06 10:08 | OP.EGD_ITS ---
Patient Name: Sid Israel Procedure Date: 10/06/2019 9:06 AM Date of : 1940 Age: 79 Procedure: Upper GI endoscopy Indications: Suspected upper gastrointestinal bleeding in patient with unexplained iron deficiency anemia Providers: Janae Calixto MD Referring MD: Duarte Sanchez MD Medicines: Monitored Anesthesia Care Patient Profile: This is a 79 year old male. Complications: No immediate complications. Procedure: Pre-Anesthesia Assessment: - Prior to the procedure, a History and Physical was performed, and patient medications and allergies were reviewed. The patient's tolerance of previous anesthesia was also reviewed. The risks and benefits of the procedure and the sedation options and risks were discussed with the patient. All questions were answered, and informed consent was obtained. Prior Anticoagulants: The patient has taken Plavix (clopidogrel), last dose was 5 days prior to procedure. ASA Grade Assessment: Per anesthesia. After reviewing the risks and benefits, the patient was deemed in satisfactory condition to undergo the procedure. After obtaining informed consent, the endoscope was passed under direct vision. Throughout the procedure, the patient's blood pressure, pulse, and oxygen saturations were monitored continuously. The gastroscope was introduced through the mouth, and advanced to the second part of duodenum. The upper GI endoscopy was accomplished without difficulty. The patient tolerated the procedure well. Scope In: 9:12:08 AM Scope Out: 9:19:20 AM Total Procedure Duration Time 0 hours 7 minutes 12 seconds Findings: The Z-line was irregular and was found 38 cm from the incisors. Biopsies were taken with a cold forceps for histology. Diffuse mild inflammation characterized by erythema was found in the gastric antrum. Biopsies were taken with a cold forceps for histology. Few non-bleeding superficial gastric ulcers with no stigmata of bleeding were found in the prepyloric region of the stomach. The largest lesion was 3 mm in largest dimension. Biopsies were taken with a cold forceps for histology. Biopsies were taken with a cold forceps for Helicobacter pylori cultures. The examined duodenum was normal. A sliding hiatal hernia was present. Impression: - Z-line irregular, 38 cm from the incisors. Biopsied. - Gastritis. Biopsied. - Non-bleeding gastric ulcers with no stigmata of bleeding. Biopsied. - Normal examined duodenum. - Sliding hiatal hernia. Recommendation: - Await pathology results. - Discharge patient to home. - Resume previous diet. - Use Protonix (pantoprazole) 40 mg PO daily [duration]. - Use sucralfate 1 gram PO TID (before lunch/dinner/at bedtime. - Post-Procedure Resumption of Antiplatelet Medications: Restart Plavix (clopidogrel) today 75 mg PO daily. Procedure Code(s): --- Professional --- 18443, Esophagogastroduodenoscopy, flexible, transoral; with biopsy, single or multiple Diagnosis Code(s): --- Professional --- K22.8, Other specified diseases of esophagus K29.70, Gastritis, unspecified, without bleeding K25.9, Gastric ulcer, unspecified as acute or chronic, without hemorrhage or perforation D50.9, Iron deficiency anemia, unspecified CPT copyright 2017 [employer]. All rights reserved. The codes documented in this report are preliminary and upon college physics instructor review may be revised to meet current compliance requirements. MD Janae Nguyen MD 10/06/2019 10:08:27 AM This report has been signed electronically. Number of Addenda: 0 Note Initiated On: 10/06/2019 9:06 AM
--- NOTE | 2019-10-06 10:09 | OP.CCLET_ITS ---
10/06/2019 Duarte Sanchez MD [address] [place] [address] Re : Upper GI endoscopy procedure for Sid Israel Dear Dr. Sanchez This procedure was performed on Sunday, October 06, 2019. My impressions and recommendations are as follows: Impressions : - Z-line irregular, 38 cm from the incisors. Biopsied. - Gastritis. Biopsied. - Non-bleeding gastric ulcers with no stigmata of bleeding. Biopsied. - Normal examined duodenum. - Sliding hiatal hernia. Recommendations : - Await pathology results. - Discharge patient to home. - Resume previous diet. - Use Protonix (pantoprazole) 40 mg PO daily [duration]. - Use sucralfate 1 gram PO TID (before lunch/dinner/at bedtime. - Post-Procedure Resumption of Antiplatelet Medications: Restart Plavix (clopidogrel) today 75 mg PO daily. My findings are described in the full procedure note, which is enclosed. If I can be of further assistance, please feel free to contact me at Doctor phone number(s): , Work: . Sincerely, MD Janae Nguyen MD 10/06/2019 10:08:27 AM This report has been signed electronically.
--- NOTE | 2019-10-06 10:13 | OP.COLON_ITS ---
Patient Name: Sid Israel Procedure Date: 10/06/2019 9:19 AM Date of : 1940 Age: 79 Procedure: Colonoscopy Indications: Iron deficiency anemia Providers: Janae Calixto MD Referring MD: Duarte Sanchez MD Medicines: Monitored Anesthesia Care Patient Profile: This is a 79 year old male. This is a 79 year old male. Last Colonoscopy: none. The patient's first colonoscopy is today. Complications: No immediate complications. Procedure: Pre-Anesthesia Assessment: - Prior to the procedure, a History and Physical was performed, and patient medications and allergies were reviewed. The patient's tolerance of previous anesthesia was also reviewed. The risks and benefits of the procedure and the sedation options and risks were discussed with the patient. All questions were answered, and informed consent was obtained. Prior Anticoagulants: The patient has taken Plavix (clopidogrel), last dose was 5 days prior to procedure. ASA Grade Assessment: Per anesthesia. After reviewing the risks and benefits, the patient was deemed in satisfactory condition to undergo the procedure. After I obtained informed consent, the scope was passed under direct vision. Throughout the procedure, the patient's blood pressure, pulse, and oxygen saturations were monitored continuously. The colonoscope was introduced through the anus and advanced to the cecum, identified by the appendiceal orifice, ileocecal valve and palpation. The colonoscopy was performed without difficulty. The patient tolerated the procedure well. The quality of the bowel preparation was adequate. Scope In: 9:22:30 AM Scope Withdrawal Time 0 hours 20 minutes 30 seconds Scope Out: 9:54:55 AM Total Procedure Duration Time 0 hours 32 minutes 25 seconds Findings: The perianal and digital rectal examinations were normal. A less than 5 mm polyp was found in the descending colon. The polyp was semi-pedunculated. The polyp was removed with a cold biopsy forceps. Resection and retrieval were complete. Biopsies were taken with a cold forceps for histology. The exam was otherwise without abnormality on direct and retroflexion views. Impression: - One less than 5 mm polyp in the descending colon, removed with a cold biopsy forceps. Resected and retrieved. Biopsied. - The examination was otherwise normal on direct and retroflexion views. Recommendation: - Discharge patient to home. - Resume previous diet. - Continue present medications. - Await pathology results. - Repeat colonoscopy is not recommended due to current age (66 years or older). Procedure Code(s): --- Professional --- 77015, Colonoscopy, flexible; with biopsy, single or multiple Diagnosis Code(s): --- Professional --- D12.4, Benign neoplasm of descending colon D50.9, Iron deficiency anemia, unspecified CPT copyright 2017 [employer]. All rights reserved. The codes documented in this report are preliminary and upon chair post machine operator review may be revised to meet current compliance requirements. MD Janae Nguyen MD 10/06/2019 10:13:42 AM This report has been signed electronically. Number of Addenda: 0 Note Initiated On: 10/06/2019 9:19 AM
--- NOTE | 2019-10-06 10:14 | OP.CCLET_ITS ---
10/06/2019 Duarte Sanchez MD [address] [place] [address] Re : Colonoscopy procedure for Sid Israel Dear Dr. Sanchez This procedure was performed on Sunday, October 06, 2019. My impressions and recommendations are as follows: Impressions : - One less than 5 mm polyp in the descending colon, removed with a cold biopsy forceps. Resected and retrieved. Biopsied. - The examination was otherwise normal on direct and retroflexion views. Recommendations : - Discharge patient to home. - Resume previous diet. - Continue present medications. - Await pathology results. - Repeat colonoscopy is not recommended due to current age (66 years or older). My findings are described in the full procedure note, which is enclosed. If I can be of further assistance, please feel free to contact me at Doctor phone number(s): , Work: . Sincerely, MD Janae Nguyen MD 10/06/2019 10:13:42 AM This report has been signed electronically.
== END 2019-10-06 10:56 | disposition home or self-care (01) ==
LOC: EN 07:39 → AC 07:40
PROVIDERS: Physician Assistant; PCP Family Medicine Geriatric Medicine; Referring Provider Family Medicine Geriatric Medicine; Visit Provider Surgery
PROC: 0DJD8ZZ Inspection of Lower Intestinal Tract, Via Natural or Artificial Opening Endoscopic (ICD-10-PCS; CPT 45378; principal; 2019-10-06 08:55)
DX: K29.70 Gastritis, unspecified, without bleeding (principal); K44.9 Diaphragmatic hernia without obstruction or gangrene; K25.9 Gastric ulcer, unspecified as acute or chronic, without hemorrhage or perforation; K63.5 Polyp of colon; D50.9 Iron deficiency anemia, unspecified; Z11.59 Encounter for screening for other viral diseases; I25.10 Atherosclerotic heart disease of native coronary artery without angina pectoris; I48.0 Paroxysmal atrial fibrillation; I12.9 Hypertensive chronic kidney disease with stage 1 through stage 4 chronic kidney disease, or unspecified chronic kidney disease; N18.9 Chronic kidney disease, unspecified; E78.00 Pure hypercholesterolemia, unspecified; Z79.82 Long term (current) use of aspirin; Z79.02 Long term (current) use of antithrombotics/antiplatelets; Z79.899 Other long term (current) drug therapy
CPT/HCPCS: 43239; 45380; 82962; 87635; 88305; 88313; 88342; G2023; J7120; J2405; U0003

== ENCOUNTER → 2019-10-09 | Outpatient (CLI) | payer MEDICARE, OTHER, SELFPAY ==
[2019-10-06 08:12] VITALS: BMI 29.0
[2019-10-09 16:08] LABS: Protein, Urine (Random) 249.1 mg/dL (<11.9); Protein:Creat Ratio 2847 mg/g CRE (0-200)
== END | disposition home or self-care (01) ==
LOC: POLAB3 12:44 → LABSPEC 12:47
PROVIDERS: PCP Family Medicine Geriatric Medicine; Visit Provider Family Medicine Geriatric Medicine
DX: E11.22 Type 2 diabetes mellitus with diabetic chronic kidney disease (principal); N18.9 Chronic kidney disease, unspecified
CPT/HCPCS: 82570; 84156

== ENCOUNTER → 2019-10-17 08:59 | Outpatient (CLI) | payer MEDICARE, OTHER, SELFPAY ==
[2019-10-06 08:12] VITALS: BMI 29.0
--- NOTE | 2019-10-17 09:06 | US_ITS ---
STUDY: RENAL ULTRASOUND - COMPLETE REASON FOR EXAM: Male, 79 years old. CKD 3 TECHNIQUE: Ultrasound evaluation of the kidneys was performed with real-time and static mobley-scale imaging. COMPARISON: None. FINDINGS: RIGHT KIDNEY: Normal location of the right kidney, which is normal in size. The right kidney measures 10.2 cm x 5.8 cm x 5.5 cm. There is a normal cortex of the right kidney. The renal cortex measures 1.5 cm. There is no right renal mass or cyst. There are no right renal calculi. There is no right hydronephrosis. DISTAL RIGHT URETER: There is non-visualization of the distal right ureter. There is no demonstrated right ureterovesical junction calculus. There is no demonstrated right ureteral jet. LEFT KIDNEY: Normal location of the left kidney, which is normal in size. The left kidney measures 11.2 cm x 5.6 cm x 6.2 cm. There is a normal cortex of the left kidney. The renal cortex measures 1.6 cm. There is no left renal mass or cyst. There are no left renal calculi. There is no left hydronephrosis. DISTAL LEFT URETER: There is non-visualization of the distal left ureter. There is no demonstrated left ureterovesical junction calculus. There is no demonstrated left ureteral jet. BLADDER: The bladder was not evaluated due to nondistention. US/Kidney and Bladder IMPRESSION: Normal ultrasound of the kidneys. Electronically Signed: Angel Fernandez, at 12:15 EDT , Service support ,
== END ==
PROVIDERS: PCP Family Medicine Geriatric Medicine; Referring Provider Internal Medicine Nephrology; Visit Provider Internal Medicine Nephrology
DX: N18.3 Chronic kidney disease, stage 3 (moderate) (principal)
CPT/HCPCS: 76770

== ENCOUNTER → 2019-10-28 12:29 | Outpatient (CLI) | payer MEDICARE, OTHER, SELFPAY ==
[2019-10-06 08:12] VITALS: BMI 29.0
--- NOTE | 2019-10-28 12:34 | CT_ITS ---
STUDY: CT LUMBAR SPINE WITHOUT CONTRAST REASON FOR EXAM: Male, 79 years old. BACK PAIN, SPINAL STENOSIS, PREV LB SURG-PT STATES POSS HARDWARE IS LOOSE, INCLUDE T11 AND T12 PER DR REQUEST RADIATION DOSAGE (If Supplied By Facility): CTDIvol = ( 33.94 ) mGy, DLP = ( 1130.68 ) mGycm TECHNIQUE: The patient was scanned in a multi detector CT scanner. High resolution transaxial imaging was performed. Images were obtained from T11 to L1. Sagittal and coronal images were reconstructed. Individualized dose optimization techniques were used for this CT. COMPARISON: MRI 05/28/2018 FINDINGS: Normal lumbar lordosis. There is no substantial scoliosis. There is increased concavity of the inferior endplate of the T12 vertebral body consistent with a mild compression fracture. This may be acute, subacute, or chronic. No retropulsion into the spinal canal. L1-2: Status post posterior decompression and transpedicular fixation with anatomic alignment. There is radiolucency surrounding the pedicle screws within the L1 worrisome for loosening. There is some vacuum disc formation but no spinal stenosis or neural foraminal stenosis. L2-3: Status post posterior decompression and transpedicular fixation with anatomic alignment and no spinal stenosis or neural foraminal stenosis. L3-4: Status post posterior decompression and transpedicular fixation with 2 mm of anterolisthesis of L3 on L4 with a mild broad disc protrusion producing mild spinal stenosis and mild bilateral neural foraminal stenosis. L4-5: Status post interbody fusion, posterior decompression, and transjugular fixation with 2 mm of anterolisthesis of L4 on L5 with no spinal stenosis or neural foraminal stenosis. L5-S1: Normal endplates. Normal disc height and morphology. Normal bilateral facet joints. Normal central canal and bilateral lateral recesses. Normal bilateral intervertebral neural foramina. Normal visualized paraspinous soft tissue structures. CT/Spine Lumbar without Contrast IMPRESSION: 1. Mild compression fracture the inferior endplate of T12 which may be acute, subacute, or chronic. No retropulsion into the spinal canal. 2. Status post posterior decompression transpedicular fixation from L1 through L5 as described above. There is radiolucency surrounding the pedicles screws within the L1 worrisome for some loosening. No severe spinal stenosis or neural foraminal stenosis. Electronically Signed: Cleveland Perdomo MD at 17:17 EDT Tel , Service support ,
--- NOTE | 2019-10-28 13:45 | MRI_ITS ---
STUDY: MRI LUMBAR SPINE WITH AND WITHOUT CONTRAST REASON FOR EXAM: Male, 79 years old. Spondylolisthesis, new back pain, hx prior surg x 3-most recent 05/2019 TECHNIQUE: Standardized fat and water weighted pulse sequences were obtained in the sagittal and axial planes. 20ml IV Dotarem was administered for the contrast portion of the examination. COMPARISON: 05/28/2018 FINDINGS: T12-L1: Normal endplates. Normal disc height, hydration and morphology. Normal bilateral facet joints. Normal central canal and bilateral lateral recesses. Normal bilateral intervertebral neural foramina. Normal lumbar lordosis. There is no substantial scoliosis. Normal conus medullaris that terminates at the T12/L1. There is mild loss of height of the T12 vertebral body with concavity the inferior endplate and marrow edema felt to represent a subacute compression fracture. No retropulsion into the spinal canal. L1-2: Status post posterior decompression transpedicular fixation with anatomic alignment with a mild bilobed disc protrusion producing mild spinal stenosis and mild bilateral neural foraminal stenosis. L2-3: Status post posterior decompression and transpedicular fixation with anatomic alignment and a mild bilobed disc protrusion which produces mild spinal stenosis and mild bilateral neural foraminal stenosis. Furthermore, 1 x 4 cm postoperative seroma at the site of posterior decompression but posterior to the thecal sac without mass effect. L3-4: Status post posterior decompression transjugular fixation with 2 mm of anterolisthesis of L3 on L4 and a mild bilobed disc protrusion producing mild spinal stenosis and mild bilateral neural foraminal stenosis. L4-5: Status post posterior decompression and transpedicular fixation with 2 mm of anterolisthesis of L4 and L5 with no spinal stenosis or neural foraminal stenosis. L5-S1: Normal endplates. Normal disc height, hydration and morphology. Normal bilateral facet joints. Normal central canal and bilateral lateral recesses. Normal bilateral intervertebral neural foramina. Normal visualized sacral ala. Normal visualized paraspinous soft tissue structures. There is no demonstrated abnormal enhancement. MRI/Spine Lumbar W/WO Contrast IMPRESSION: 1. Subacute mild compression fracture of the inferior endplate of T12 without retropulsion into the spinal canal. 2. Status post posterior decompression and transpedicular fixation from L1 through L5 as described above. No severe spinal stenosis or neural foraminal stenosis. Electronically Signed: Cleveland Perdomo MD at 17:29 EDT Tel , Service support ,
== END ==
PROVIDERS: PCP Family Medicine Geriatric Medicine; Referring Provider Orthopaedic Surgery; Visit Provider Orthopaedic Surgery
DX: M48.061 Spinal stenosis, lumbar region without neurogenic claudication (principal); M43.16 Spondylolisthesis, lumbar region
CPT/HCPCS: 72131; 72158; A9575

== ENCOUNTER → 2019-11-26 12:07 | Outpatient (CLI) | payer MEDICARE, OTHER, SELFPAY ==
[2019-10-06 08:12] VITALS: BMI 29.0
[2019-11-26 13:32] LABS: Albumin, Serum 3.3 g/dL (3.2-5.0); BUN 18 mg/dL (7-18); BUN/Creat Ratio 14.1 RATIO (10-20); Calcium,Total 8.6 mg/dL (8.5-10.1); Chloride 108 mmol/L (98-107); Creatinine, Serum 1.28 mg/dL (0.70-1.30); EST Glomerular Filtration Rate 58 mL/min (>60); Est Glom Filt Rate - Afr Amer 70 mL/min (>60); Glucose 333 mg/dL (74-106); Phosphorus 2.9 mg/dL (2.5-4.9); Sodium Level 139 mmol/L (136-145)
== END ==
PROVIDERS: Internal Medicine Nephrology; PCP Family Medicine Geriatric Medicine; Visit Provider Family Medicine Geriatric Medicine
DX: N18.3 Chronic kidney disease, stage 3 (moderate) (principal); E55.9 Vitamin D deficiency, unspecified
CPT/HCPCS: 36415; 80069

== ENCOUNTER → 2019-12-02 12:02 | Outpatient (CLI) | payer MEDICARE, OTHER, SELFPAY ==
[2019-10-06 08:12] VITALS: BMI 29.0
[2019-12-02 12:31] LABS: Absolute Lymphocyte Count 1.38 X10^3/uL (0.83-4.51); Absolute Neutrophil Count 5.1 X10^3/uL (2.0-7.7); Basophil# 0.03 X10^3/uL; Basophil% 0.4 % (0-1); Eosinophil# 0.15 X10^3/uL; Eosinophils% 2.1 % (0-5); Lymphocyte # 1.38 X10^3/ul (4.0); Lymphocyte % 19.2 % (19-41); Mean Corp Hgb Conc 32.4 g/dL (32-36); Mean Corpuscular Volume 89.4 fL (80-94); Mean Platelet Vol. 9.4 fl (6.2-12.0); Monocyte# 0.57 X10^3/uL; Monocyte% 7.9 % (0-10); NRBC Flagged by Analyzer 0 % (0-5); Neutrophil # 5.05 X10^3/uL (2.7-7.7); Neutrophil % 70.1 % (47-70); Platelet Count 211 K/mm3 (150-450); RBC Distribution Width CV 14.2 % (11.6-14.6); RBC Distribution Width SD 45.8 fl (35.1-43.9); Red Blood Count 4.14 M/mm3 (4.6-6.2); White Blood Count 7.2 K/mm3 (4.4-11.0)
[2019-12-02 12:47] LABS: Vitamin D,25 Hydroxy 51.4 ng/mL
[2019-12-02 13:13] LABS: ALB/GLOB Ratio 1.1 RATIO (0.9-2.4); AST(SGOT) 16 U/L (15-37); Alanine Aminotransfer ALT/SGPT 23 U/L (16-61); Albumin, Serum 3.4 g/dL (3.2-5.0); Alkaline Phosphatase 169 U/L (45-117); Anion Gap 4 (5-15); BUN 16 mg/dL (7-18); BUN/Creat Ratio 13.6 RATIO (10-20); Calcium,Total 8.7 mg/dL (8.5-10.1); Chloride 110 mmol/L (98-107); Creatinine, Serum 1.18 mg/dL (0.70-1.30); EST Glomerular Filtration Rate 63 mL/min (>60); Est Glom Filt Rate - Afr Amer 76 mL/min (>60); Globulin 3.1 g/dL (2.2-4.2); Glucose 298 mg/dL (74-106); Potassium 4.1 mmol/L (3.5-5.1); Protein, Total 6.5 g/dL (6.4-8.2); Sodium Level 142 mmol/L (136-145); Thyroid Stim Hormone (TSH) 2.58 uIU/mL (0.358-3.74)
== END ==
PROVIDERS: PCP Family Medicine Geriatric Medicine; Visit Provider Family Medicine Geriatric Medicine
DX: I10 Essential (primary) hypertension (principal); E55.9 Vitamin D deficiency, unspecified
CPT/HCPCS: 36415; 80053; 82306; 84443; 85025

== ENCOUNTER → 2019-12-16 08:54 | Outpatient (CLI) | payer MEDICARE, OTHER, SELFPAY ==
[2019-10-06 08:12] VITALS: BMI 29.0
--- NOTE | 2019-12-16 09:27 | BD_ITS ---
STUDY: DUAL ENERGY X-RAY ABSORPTIOMETRY / DXA REASON FOR EXAM: Male, 79 years old. Pat is 222.9# and 5'' 10.5 and quot; a loss of 3.5 and quot; per pat. Type II diabetic he takes Januvia and Glyburide. Currently taking diuretics and levothyroxin. Does a little exercising. Hx of a lumbar fusion and a left hip replacement. TECHNIQUE: Bone Mineral Density (BMD) measurements of right hip and left forearm were obtained. COMPARISON: None. FINDINGS: Right Femur Total: g/cm2 (0.805) / T-score (-2.1) / Z-score (-0.9) Right Femoral Neck: g/cm2 (0.797) / T-score (-2.1) / Z-score (-0.6) Left Forearm: g/cm2 (1.133) / T-score (1.3) / Z-score (2.5) BD/Dexa Bone Density Study IMPRESSION: The patient is considered osteopenic as outlined below according to World Joo Organization (WHO) criteria with a moderate fracture risk. Reference Information: The T-score is the number of standard deviations above or below the standard which is normal for young adults at their peak bone mineral density. The World Health Organization (WHO) interprets the T-scores as follows: Above -1 Normal bone density Between -1 and -2.5 Osteopenia Equal to / or below -2.5 Osteoporosis As a practical clinical guideline, osteopenia may be graded as follows: Mild -1 through -1.5 Moderate -1.6 through -2.0 Severe -2.1 through -2.4 The Z-score is the number of standard deviations above or below age-matched controls. A Z-score of less than -1.5 would be considered abnormal. References: 1. NIH Osteoporosis and Related Bone Diseases http://www.osteo.org 2. International Society for Clinical Densitometry http://www.iscd.org 3. National Osteoporosis Foundation http://www.nof.org Electronically Signed: Angel Fernandez, at 11:15 EDT , Service support ,
== END ==
PROVIDERS: PCP Family Medicine Geriatric Medicine; Referring Provider Family Medicine Geriatric Medicine; Visit Provider Family Medicine Geriatric Medicine
DX: M81.0 Age-related osteoporosis without current pathological fracture (principal)
CPT/HCPCS: 77080

== ENCOUNTER → 2019-12-19 14:09 | Outpatient (CLI) | payer MEDICARE, OTHER, SELFPAY ==
[2019-10-06 08:12] VITALS: BMI 29.0
--- NOTE | 2019-12-19 14:12 | VDLE_ITS ---
Reason For Study: EDEMA RIGHT GSV is normal. CFV is compressible, spontaneous, phasic, competent and demonstrates normal augmentation. FV is compressible, spontaneous, phasic, competent and demonstrates normal augmentation. POP V is compressible, spontaneous, phasic, competent and demonstrates normal augmentation. T/P Trunk is compressible. PTV is compressible. RT PerV is compressible. Procedure Exam performed in department. A preliminary report was called and/or faxed to DR SANCHEZ. Interpretation Summary Deep veins of the right lower extremity are patent and compressible segmentally. There is no evidence of right lower extremity deep vein thrombosis. Valvular competence appears intact within the proximal deep venous system on the right . The right great saphenous vein appears patent and compressible segmentally. Ordering Physician: Duarte Sanchez Referring Physician: Duarte Sanchez Chi Performed By: Karie Braun, DARA, RVT
== END ==
PROVIDERS: PCP Family Medicine Geriatric Medicine; Referring Provider Family Medicine Geriatric Medicine; Visit Provider Family Medicine Geriatric Medicine
DX: R60.0 Localized edema (principal)
CPT/HCPCS: 93971

== ENCOUNTER → 2019-12-22 16:23 | Outpatient (CLI) | payer MEDICARE, OTHER, SELFPAY ==
[2019-10-06 08:12] VITALS: BMI 29.0
--- NOTE | 2019-12-22 16:26 | RAD_ITS ---
STUDY: X-RAY - LUMBAR SPINE REASON FOR EXAM: Male, 79 years old. Low back pain running down right leg. Multiple back surgeries, most recent surgery done in May 2019. TECHNIQUE: 3 view(s) of the lumbar spine were obtained. COMPARISON: 04/18/2018 FINDINGS: Bilateral pedicular fusion L1-L5 with vertical rods and laminectomy at the L4-L5 level, stable disc spacer placement at L4-L5 and stable mild anterolisthesis L4 on L5. There is no substantial scoliosis. Increased kyphosis at the thoracolumbar junction with increase off anterior wedge deformity of T12. Question of lucency along the L1 pedicles. Intact hardware. There is a serial bone implant. Facet joint obscured. There is multilevel endplate spondylosis of the lumbar vertebrae. There is multi-level degenerative disc disease with multi-level disc space narrowing. RAD/Lumbar Spine 2 or 3 Views IMPRESSION: Postsurgical changes as above. Multilevel degenerative changes. Increased wedge compression deformity of T12 with mild kyphosis. Stable mild anterolisthesis these is L4 on L5 disc spacer placement. Interval bone implants obscuring the facet joints. Neural foraminal narrowing could be present, consider CT examination. Electronically Signed: Traci Lewis MD at 6:59 EDT , Service support ,
== END ==
PROVIDERS: PCP Family Medicine Geriatric Medicine; Referring Provider Family Medicine Geriatric Medicine; Visit Provider Family Medicine Geriatric Medicine
DX: M54.5 Low back pain (principal)
CPT/HCPCS: 72100